=== PATIENT | male | born 1975 | race African-American/Black ===

== ENCOUNTER 2019-01-18 09:29 | Inpatient (IN) | payer MEDICARE, MEDICAID ==
[~2019-01-18] VITALS: Ht 190.5 cm; Wt 97.5 kg
[2019-01-18 10:09] LABS: BASOPHILS % 0.8 % (0.0-2.0); EOSINOPHILS % 1.9 % (0.0-5.0); HEMATOCRIT. 30.3 % (42.0-52.0); HEMOGLOBIN. 10.1 g/dL (14.0-18.0); MEAN CORPUSCULAR VOLUME 78.2 fL (80.0-94.0); MONOCYTES % 5.2 % (2.0-8.0); NEUTROPHILS % 76.1 % (40.0-76.0); PLATELET 95 x1000/uL (130-400); RED BLOOD CELL COUNT 3.87 mill/uL (4.7-6.1); RED CELL DISTRIBUTION WIDTH 25.2 % (11.6-14.6)
[2019-01-18 10:16] LABS: CHLORIDE 106 mEq/L (98-107)
[2019-01-18 10:33] LABS: PLATELET ESTIMATE DECREASED
[2019-01-18] MEDS ORDERED: HYDRALAZINE 20MG/ML VIAL IV ONE ×2 (12:15→13:45)
[2019-01-18 16:31] VITALS: BP 189/99
[2019-01-18 16:40] VITALS: BP 198/99
[2019-01-18] MEDS ORDERED: ONDANSETRON HCL 4MG/2ML INJ IV PRN (17:00)
[2019-01-18] MEDS ORDERED: ACETAMINOPHEN 325MG TABLET PO PRN (17:00)
[2019-01-18] MEDS ORDERED: IPRATROPIUM/ALBUTEROL 0.5-3(2.5)MG/3ML NEB NEB PRN (17:00)
[2019-01-18] MEDS ORDERED: GUAIFENESIN 200MG/10ML SUGAR FREE UDC PO PRN (17:00)
[2019-01-18] MEDS ORDERED: DIPHENHYDRAMINE 50MG/ML VIAL IV PRN (17:00)
[2019-01-18] MEDS ORDERED: MAGNESIUM/ALUMINUM HYDROXIDE/SIMETHICONE 30ML UDC PO PRN (17:00)
[2019-01-18] MEDS ORDERED: HYDRALAZINE 20MG/ML VIAL IV PRN (17:00)
[2019-01-18] MEDS: CLONIDINE 0.1MG TABLET PO PRN (17:41)
[2019-01-18] MEDS ORDERED: LOSA50TA41 PO (17:56)
[2019-01-18] MEDS ORDERED: CLON-457 PO (17:56)
[2019-01-18] MEDS ORDERED: ASPI-1393 PO (17:56)
[2019-01-18] MEDS ORDERED: TICA90TA PO (17:56)
[2019-01-18] MEDS ORDERED: CARV12.545 PO (17:56)
[2019-01-18] MEDS ORDERED: OMEP40CA34 PO (17:56)
[2019-01-18] MEDS ORDERED: LEVO25TA7 PO (17:56)
[2019-01-18] MEDS ORDERED: ATOR-2 PO (17:56)
[2019-01-18] MEDS ORDERED: AMLO10TA80 PO (17:56)
[2019-01-18 18:30] VITALS: BP 160/95
[2019-01-18 20:00] VITALS: BP 180/102
[2019-01-18] MEDS: OMEPRAZOLE 20MG CAPSULE EXTENDED RELEASE PO SCH (20:17)
[2019-01-18] MEDS: CARVEDILOL 12.5MG TABLET PO SCH (20:18)
[2019-01-18] MEDS: ATORVASTATIN CALCIUM 40MG TABLET PO SCH (20:18)
[2019-01-18] MEDS: SODIUM CHLORIDE 0.9% INJ 3ML FLUSH IVF SCH (21:31)
[2019-01-18] MEDS: HYDRALAZINE HCL 50MG TABLET PO SCH (21:31)
[2019-01-18] MEDS: CLONIDINE 0.2MG TABLET PO SCH (21:31)
[2019-01-18 23:59] VITALS: BP 171/93
[2019-01-19] VITALS (8 sets, daily range): BP systolic 143–192; BP diastolic 82–104
[2019-01-19] MEDS: CLONIDINE 0.1MG TABLET PO PRN (02:49)
[2019-01-19] MEDS: HYDRALAZINE HCL 50MG TABLET PO SCH (05:22)
[2019-01-19] MEDS: SODIUM CHLORIDE 0.9% INJ 3ML FLUSH IVF SCH ×3 (05:22→21:45)
[2019-01-19] MEDS: CLONIDINE 0.2MG TABLET PO SCH (05:22)
[2019-01-19 06:51] LABS: EOSINOPHILS % 2.1 % (0.0-5.0); HEMATOCRIT. 33.6 % (42.0-52.0); HEMOGLOBIN. 10.9 g/dL (14.0-18.0); LYMPHOCYTES % 17.3 % (20.0-50.0); MEAN CORPUSCULAR HEMOGLOBIN 25.6 pg (28.0-32.0); MEAN CORPUSCULAR VOLUME 79.2 fL (80.0-94.0); MEAN PLATELET VOLUME 8.2 fl (7.4-10.4); MONOCYTES % 5.2 % (2.0-8.0); NEUTROPHILS % 74.4 % (40.0-76.0); PLATELET 98 x1000/uL (130-400); RED BLOOD CELL COUNT 4.25 mill/uL (4.7-6.1); RED CELL DISTRIBUTION WIDTH 24.9 % (11.6-14.6)
[2019-01-19] MEDS: OMEPRAZOLE 20MG CAPSULE EXTENDED RELEASE PO SCH ×2 (08:54→21:00)
[2019-01-19] MEDS: ASPIRIN 81MG EC TABLET PO SCH (08:54)
[2019-01-19] MEDS: LEVOTHYROXINE SODIUM 25MCG TABLET PO SCH (08:55)
[2019-01-19] MEDS: TICAGRELOR 90 MG TABLET PO SCH ×2 (08:55→17:47)
[2019-01-19] MEDS: CARVEDILOL 12.5MG TABLET PO SCH ×2 (08:55→21:00)
[2019-01-19] MEDS ORDERED: AMLODIPINE 10MG TABLET PO SCH (09:00)
[2019-01-19] MEDS ORDERED: LOSARTAN POTASSIUM 50 MG TABLET PO SCH (09:00)
[2019-01-19] MEDS ORDERED: HYDRALAZINE HCL 50MG TABLET PO SCH (14:00)
[2019-01-19] MEDS: NIFEDIPINE XL 90MG TAB PO SCH ×3 (16:02→21:46)
[2019-01-19] MEDS: CLONIDINE 0.3MG TABLET PO SCH ×2 (16:03→21:46)
[2019-01-19] MEDS: HYDRALAZINE HCL 100MG TABLET PO SCH ×2 (16:03→21:46)
[2019-01-19] MEDS: ATORVASTATIN CALCIUM 40MG TABLET PO SCH (21:00)
[2019-01-19] MEDS ORDERED: CLONIDINE 0.2MG TABLET PO PRN (21:24)
[2019-01-20] VITALS: BP 123/79
[2019-01-20 04:00] VITALS: BP 121/73
[2019-01-20] MEDS: SODIUM CHLORIDE 0.9% INJ 3ML FLUSH IVF SCH ×2 (05:34→13:02)
[2019-01-20] MEDS: CLONIDINE 0.3MG TABLET PO SCH ×2 (05:34→13:02)
[2019-01-20] MEDS: HYDRALAZINE HCL 100MG TABLET PO SCH ×2 (05:35→13:02)
[2019-01-20 08:00] VITALS: BP 129/77
[2019-01-20] MEDS: NIFEDIPINE XL 90MG TAB PO SCH (08:58)
[2019-01-20] MEDS: ASPIRIN 81MG EC TABLET PO SCH (08:58)
[2019-01-20] MEDS: TICAGRELOR 90 MG TABLET PO SCH (08:58)
[2019-01-20] MEDS: LEVOTHYROXINE SODIUM 25MCG TABLET PO SCH (08:59)
[2019-01-20] MEDS: OMEPRAZOLE 20MG CAPSULE EXTENDED RELEASE PO SCH (08:59)
[2019-01-20] MEDS: CARVEDILOL 12.5MG TABLET PO SCH (08:59)
[2019-01-20 12:25] VITALS: BP 135/71
[2019-01-20 15:54] VITALS: BP 140/87
[2019-01-20 16:30] VITALS: BP 140/87
== END 2019-01-20 17:43 | disposition home or self-care (01) | DRG 291 ==
LOC: ER 09:29 → 7WST 12:36 → ENRESERV 12:55
PROVIDERS: ADMIT Internal Medicine; ATTEND Internal Medicine
PROC: 5A1D70Z Performance of Urinary Filtration, Intermittent, Less than 6 Hours Per Day (ICD-10-PCS; principal; 2019-01-19)
PROC: 5A1D70Z Performance of Urinary Filtration, Intermittent, Less than 6 Hours Per Day (ICD-10-PCS; 2019-01-20)
DX: I13.2 Hypertensive heart and chronic kidney disease with heart failure and with stage 5 chronic kidney disease, or end stage renal disease (principal); N18.6 End stage renal disease; I31.3 Pericardial effusion (noninflammatory); I25.118 Atherosclerotic heart disease of native coronary artery with other forms of angina pectoris; I16.0 Hypertensive urgency; K21.9 Gastro-esophageal reflux disease without esophagitis; T44.7X5A Adverse effect of beta-adrenoreceptor antagonists, initial encounter; R00.1 Bradycardia, unspecified; E78.00 Pure hypercholesterolemia, unspecified; I50.9 Heart failure, unspecified; I25.2 Old myocardial infarction; Y92.89 Other specified places as the place of occurrence of the external cause; Z79.899 Other long term (current) drug therapy; Z82.49 Family history of ischemic heart disease and other diseases of the circulatory system; Z83.3 Family history of diabetes mellitus; Z95.5 Presence of coronary angioplasty implant and graft; Z99.2 Dependence on renal dialysis; Z79.82 Long term (current) use of aspirin; Z88.0 Allergy status to penicillin; Z88.8 Allergy status to other drugs, medicaments and biological substances; Z91.041 Radiographic dye allergy status
CPT/HCPCS: 36415; 71045; 80048; 83880; 84484; 93005; 93306; 99291; J0360; J8499

== ENCOUNTER 2019-07-20 16:42 | Inpatient (IN) | payer MEDICARE, MEDICAID ==
[~2019-07-20] VITALS: Ht 190.5 cm; Wt 89.8 kg
[~2019-07-20 16:42] MED LIST: AMLO10TA80 PO; ASPI-1497 PO; ATOR-2 PO; CARV12.545 PO; CLON-457 PO; LEVO25TA7 PO; LOSA50TA41 PO; OMEP40CA12 PO; TICA90TA PO
[2019-07-20] MEDS ORDERED: ONDANSETRON HCL 4MG/2ML INJ IV ONE ×3 (17:00→23:15)
[2019-07-20] MEDS ORDERED: MORPHINE SULFATE 2 MG/ML CPJ (NOT FOR IM USE) IV ONE (17:00)
[2019-07-20 18:57] LABS: CHLORIDE 107 mEq/L (98-107)
[2019-07-20 19:01] LABS: HEMATOCRIT. 32.7 % (42.0-52.0); HEMOGLOBIN. 11.1 g/dL (14.0-18.0); MEAN CORPUSCULAR HEMOGLOBIN 28.8 pg (28.0-32.0); MEAN CORPUSCULAR VOLUME 84.9 fL (80.0-94.0); MEAN PLATELET VOLUME 7.2 fl (7.4-10.4); PLATELET 136 x1000/uL (130-400); RED BLOOD CELL COUNT 3.85 mill/uL (4.7-6.1); RED CELL DISTRIBUTION WIDTH 18.7 % (11.6-14.6)
[2019-07-20 19:34] LABS: PLATELET ESTIMATE NORMAL
[2019-07-20] MEDS ORDERED: IOHEXOL-300 100 ML BOTTLE ONE (21:01)
[2019-07-20] MEDS ORDERED: KETOROLAC 30MG/ML VIAL IV ONE (21:30)
[2019-07-20] MEDS ORDERED: METOCLOPRAMIDE HCL 10MG/2ML VIAL IV ONE (21:45)
[2019-07-20] MEDS ORDERED: MORPHINE SULFATE 4 MG/ML CPJ (NOT FOR IM USE) IV ONE (23:15)
[2019-07-21] MEDS: MORPHINE SULFATE 2 MG/ML CPJ (NOT FOR IM USE) IV PRN ×3 (07:57→20:58)
[2019-07-21] MEDS: ONDANSETRON HCL 4MG/2ML INJ IV PRN (07:57)
[2019-07-21 08:00] VITALS: BP 160/90
[2019-07-21 12:00] VITALS: BP 177/84
[2019-07-21] MEDS: PANTOPRAZOLE SODIUM 40 MG/VIAL IV SCH (13:25)
[2019-07-21] MEDS: LEVOTHYROXINE SODIUM 25MCG TABLET PO SCH (13:25)
[2019-07-21] MEDS: DEXT 5%/0.45% NACL 1000ML 1,000 ML IV SCH ×2 (13:25→23:02)
[2019-07-21] MEDS: LOSARTAN POTASSIUM 50 MG TABLET PO SCH (13:26)
[2019-07-21 16:00] VITALS: BP 170/87
[2019-07-21] MEDS: TICAGRELOR 90 MG TABLET PO SCH (17:24)
[2019-07-21 20:00] VITALS: BP 156/91
[2019-07-22] VITALS: BP 153/85
[2019-07-22] MEDS: ONDANSETRON HCL 4MG/2ML INJ IV PRN (02:13)
[2019-07-22] MEDS: MORPHINE SULFATE 2 MG/ML CPJ (NOT FOR IM USE) IV PRN ×3 (02:16→14:01)
[2019-07-22 04:00] VITALS: BP 153/84
[2019-07-22 07:36] LABS: CHLORIDE 102 mEq/L (98-107)
[2019-07-22 07:41] LABS: BASOPHILS % 0.4 % (0.0-2.0); EOSINOPHILS % 0.2 % (0.0-5.0); HEMATOCRIT. 32.4 % (42.0-52.0); HEMOGLOBIN. 10.8 g/dL (14.0-18.0); LYMPHOCYTES % 8.1 % (20.0-50.0); MEAN CORPUSCULAR HEMOGLOBIN 28.3 pg (28.0-32.0); MEAN CORPUSCULAR VOLUME 84.9 fL (80.0-94.0); MEAN PLATELET VOLUME 7.3 fl (7.4-10.4); MONOCYTES % 8.2 % (2.0-8.0); NEUTROPHILS % 83.1 % (40.0-76.0); PLATELET 139 x1000/uL (130-400); RED BLOOD CELL COUNT 3.82 mill/uL (4.7-6.1); RED CELL DISTRIBUTION WIDTH 18.8 % (11.6-14.6)
[2019-07-22 08:00] VITALS: BP 124/79
[2019-07-22] MEDS: PANTOPRAZOLE SODIUM 40 MG/VIAL IV SCH (08:29)
[2019-07-22] MEDS: TICAGRELOR 90 MG TABLET PO SCH (08:30)
[2019-07-22] MEDS: LOSARTAN POTASSIUM 50 MG TABLET PO SCH (08:30)
[2019-07-22] MEDS: LEVOTHYROXINE SODIUM 25MCG TABLET PO SCH (08:30)
[2019-07-22] MEDS ORDERED: AMLODIPINE 10MG TABLET PO SCH (09:00)
[2019-07-22] MEDS ORDERED: ASPIRIN 81MG EC TABLET PO SCH (09:00)
[2019-07-22] MEDS ORDERED: DOCU-138 MT (09:50)
[2019-07-22] MEDS ORDERED: HYDR-3281 MT ×2 (09:50→09:53)
[2019-07-22] MEDS ORDERED: DOCUSATE SODIUM 100MG CAPSULE PO SCH (10:00)
[2019-07-22] MEDS ORDERED: LACTULOSE 20G/30ML UDC PO SCH (10:00)
[2019-07-22 10:12] VITALS: BP 124/79
[2019-07-22 12:00] VITALS: BP 144/86
[2019-07-22 14:01] VITALS: BP 144/86
[2019-07-23] MEDS ORDERED: FAMOTIDINE 20MG/2ML VIAL IV SCH (09:00)
== END 2019-07-22 11:45 | disposition home or self-care (01) | DRG 686 ==
LOC: ER 16:42 → 6WST 07-21 00:14 → ENRESERV 07-21 07:46
PROVIDERS: ADMIT Hospitalist; ATTEND Hospitalist
PROC: 5A1D70Z Performance of Urinary Filtration, Intermittent, Less than 6 Hours Per Day (ICD-10-PCS; principal; 2019-07-21)
DX: C64.9 Malignant neoplasm of unspecified kidney, except renal pelvis (principal); N18.6 End stage renal disease; C78.6 Secondary malignant neoplasm of retroperitoneum and peritoneum; I12.0 Hypertensive chronic kidney disease with stage 5 chronic kidney disease or end stage renal disease; E78.5 Hyperlipidemia, unspecified; E03.9 Hypothyroidism, unspecified; I25.10 Atherosclerotic heart disease of native coronary artery without angina pectoris; R59.9 Enlarged lymph nodes, unspecified; Z88.5 Allergy status to narcotic agent; Z88.0 Allergy status to penicillin; Z91.041 Radiographic dye allergy status; Z79.82 Long term (current) use of aspirin; Z79.890 Hormone replacement therapy; Z79.899 Other long term (current) drug therapy; I25.2 Old myocardial infarction; Z99.2 Dependence on renal dialysis; Z95.5 Presence of coronary angioplasty implant and graft
CPT/HCPCS: 36415; 74177; 80053; 84443; 85025; 93970; 99285; C9113; J1885; J2270; J2405; J2765; Q9967; J8499

== ENCOUNTER 2019-10-11 05:21 | Inpatient (IN) | payer MEDICARE, MEDICAID ==
[2019-10-11] VITALS (9 sets, daily range): BP systolic 118–163; BP diastolic 67–93
[~2019-10-11] VITALS: Ht 190.5 cm; Wt 93.0 kg
[~2019-10-11 05:21] MED LIST changes: +HYDR-3281 MT
[2019-10-11 06:28] LABS: BASOPHILS % 1.1 % (0.0-2.0); EOSINOPHILS % 2.2 % (0.0-5.0); LYMPHOCYTES % 16.9 % (20.0-50.0); MEAN CORPUSCULAR HEMOGLOBIN 29.8 pg (28.0-32.0); MEAN CORPUSCULAR VOLUME 89.8 fL (80.0-94.0); MEAN PLATELET VOLUME 7.8 fl (7.4-10.4); MONOCYTES % 7.1 % (2.0-8.0); NEUTROPHILS % 72.7 % (40.0-76.0); PLATELET 153 x1000/uL (130-400); RED CELL DISTRIBUTION WIDTH 19.7 % (11.6-14.6)
[2019-10-11 06:36] LABS: CHLORIDE 106 mEq/L (98-107); HEMOGLOBIN. 6.9 g/dL (14.0-18.0)
[2019-10-11 06:37] LABS: HEMATOCRIT. 20.7 % (42.0-52.0)
[2019-10-11] MEDS ORDERED: NIFE20CA PO (11:55)
[2019-10-11] MEDS ORDERED: CLON0.2T PO (11:55)
[2019-10-11] MEDS ORDERED: CINA30 MT (11:55)
[2019-10-11] MEDS ORDERED: FERR210T PO (11:55)
[2019-10-11] MEDS ORDERED: HYDR-4135 MT (11:59)
[2019-10-11] MEDS ORDERED: CLONIDINE 0.2MG TABLET PO SCH (13:00)
[2019-10-11] MEDS: CINACALCET HCL 30MG TABLET PO SCH ×2 (13:33→16:51)
[2019-10-11] MEDS: CLONIDINE 0.2MG TABLET PO SCH ×2 (14:00→21:05)
[2019-10-11] MEDS: TICAGRELOR 90 MG TABLET PO SCH (16:51)
[2019-10-11] MEDS: CARVEDILOL 12.5MG TABLET PO SCH (21:03)
[2019-10-11] MEDS: NIFEDIPINE XL 90MG TAB PO SCH (21:05)
[2019-10-12 00:13] VITALS: BP 127/91
[2019-10-12 00:20] VITALS: BP 110/74
[2019-10-12 04:24] VITALS: BP 131/82
[2019-10-12] MEDS: CLONIDINE 0.2MG TABLET PO SCH (06:32)
[2019-10-12 06:55] LABS: INR 1.1; PROTHROMBIN TIME 11.3 sec (9.6-11.0)
[2019-10-12 07:01] LABS: EOSINOPHILS % 2.7 % (0.0-5.0); HEMATOCRIT. 25.7 % (42.0-52.0); HEMOGLOBIN. 8.5 g/dL (14.0-18.0); LYMPHOCYTES % 17.2 % (20.0-50.0); MEAN CORPUSCULAR HEMOGLOBIN 29.7 pg (28.0-32.0); MEAN PLATELET VOLUME 7.4 fl (7.4-10.4); MONOCYTES % 7.1 % (2.0-8.0); PLATELET 137 x1000/uL (130-400); RED BLOOD CELL COUNT 2.86 mill/uL (4.7-6.1); RED CELL DISTRIBUTION WIDTH 18.3 % (11.6-14.6)
[2019-10-12 07:03] LABS: CHLORIDE 111 mEq/L (98-107)
[2019-10-12] MEDS ORDERED: PANTOPRAZOLE 40MG DR TABLET PO SCH (07:20)
[2019-10-12] MEDS ORDERED: LEVOTHYROXINE SODIUM 25MCG TABLET PO SCH (07:20)
[2019-10-12 08:03] VITALS: BP 133/87
[2019-10-12] MEDS: CINACALCET HCL 30MG TABLET PO SCH (08:29)
[2019-10-12] MEDS: NIFEDIPINE XL 90MG TAB PO SCH (08:29)
[2019-10-12] MEDS: TICAGRELOR 90 MG TABLET PO SCH (08:29)
[2019-10-12] MEDS: CARVEDILOL 12.5MG TABLET PO SCH (08:30)
[2019-10-12] MEDS ORDERED: AMLODIPINE 10MG TABLET PO SCH (09:00)
[2019-10-12] MEDS ORDERED: LOSARTAN POTASSIUM 50 MG TABLET PO SCH (09:00)
[2019-10-12] MEDS ORDERED: MEDICATION NOT ON FORMULARY EA (Omeprazole 40 MG) PO SCH (09:00)
[2019-10-12] MEDS ORDERED: MEDICATION NOT ON FORMULARY EA (Clonidine HCl (Clonidine HCl ER) 0.1 MG) PO SCH (09:00)
[2019-10-12] MEDS ORDERED: ASPIRIN 81MG TABLET PO SCH (09:00)
[2019-10-12] MEDS ORDERED: ATORVASTATIN CALCIUM 40MG TABLET PO SCH (09:00)
[2019-10-12 11:11] VITALS: BP 133/87
[2019-10-12 12:03] VITALS: BP 92/68
== END 2019-10-12 12:54 | disposition home or self-care (01) | DRG 699 ==
LOC: ER 05:21 → 6WST 08:08 → ENRESERV 08:44
PROVIDERS: ADMIT Hospitalist; ATTEND Hospitalist
PROC: 30233N1 Transfusion of Nonautologous Red Blood Cells into Peripheral Vein, Percutaneous Approach (ICD-10-PCS; principal; 2019-10-11)
PROC: 5A1D70Z Performance of Urinary Filtration, Intermittent, Less than 6 Hours Per Day (ICD-10-PCS; 2019-10-11)
DX: N28.1 Cyst of kidney, acquired (principal); I12.0 Hypertensive chronic kidney disease with stage 5 chronic kidney disease or end stage renal disease; N18.6 End stage renal disease; D63.1 Anemia in chronic kidney disease; E03.9 Hypothyroidism, unspecified; I25.10 Atherosclerotic heart disease of native coronary artery without angina pectoris; K57.90 Diverticulosis of intestine, part unspecified, without perforation or abscess without bleeding; R31.9 Hematuria, unspecified; Z88.5 Allergy status to narcotic agent; Z99.2 Dependence on renal dialysis; Z88.0 Allergy status to penicillin; Z82.49 Family history of ischemic heart disease and other diseases of the circulatory system; Z91.041 Radiographic dye allergy status; Z79.1 Long term (current) use of non-steroidal anti-inflammatories (NSAID); Z79.899 Other long term (current) drug therapy; Z79.82 Long term (current) use of aspirin
CPT/HCPCS: 36415; 71045; 74176; 80053; 84484; 85025; 85384; 86850; 86900; 86920; 93005; 99291; P9016; J8499

== ENCOUNTER 2020-07-26 11:55 | Emergency (ER) | payer MEDICARE, MEDICAID ==
[~2020-07-26] VITALS: Ht 190.5 cm; Wt 98.0 kg
[~2020-07-26 11:55] MED LIST changes: +CINA30 MT; -CLON-457 PO; +CLON0.2T PO; -HYDR-3281 MT; +HYDR-4135 MT; +HYDR-4346 MT; +NIFE20CA PO
[2020-07-26 13:18] LABS: CHLORIDE 100 mEq/L (98-107)
[2020-07-26 13:26] LABS: EOSINOPHILS % 6.1 % (0.0-5.0); LYMPHOCYTES % 9.2 % (20.0-50.0); MEAN CORPUSCULAR HEMOGLOBIN 29.4 pg (28.0-32.0); MEAN CORPUSCULAR VOLUME 89.8 fL (80.0-94.0); MEAN PLATELET VOLUME 7.1 fl (7.4-10.4); MONOCYTES % 6.3 % (2.0-8.0); NEUTROPHILS % 77.4 % (40.0-76.0); PLATELET 186 x1000/uL (130-400); RED BLOOD CELL COUNT 2.13 mill/uL (4.7-6.1); RED CELL DISTRIBUTION WIDTH 20.9 % (11.6-14.6)
[2020-07-26 13:29] LABS: HEMATOCRIT. 19.1 % (42.0-52.0); HEMOGLOBIN. 6.3 g/dL (14.0-18.0)
[2020-07-26] MEDS ORDERED: HYDROCODONE/ACETAMINOPHEN 5/325MG TABLET PO ONE (14:15)
[2020-07-26 18:07] VITALS: BP 110/65
== END 2020-07-26 18:09 | disposition home or self-care (01) ==
LOC: ER 11:55
DX: D64.9 Anemia, unspecified (principal); R94.31 Abnormal electrocardiogram [ECG] [EKG]; N18.6 End stage renal disease; I25.10 Atherosclerotic heart disease of native coronary artery without angina pectoris; Z99.2 Dependence on renal dialysis; Z79.899 Other long term (current) drug therapy; Z79.82 Long term (current) use of aspirin; Z88.0 Allergy status to penicillin; Z88.5 Allergy status to narcotic agent
CPT/HCPCS: 36415; 71045; 80053; 84484; 85025; 86850; 86900; 86920; 93005; 99285; P9016

== ENCOUNTER 2022-02-02 07:01 | Inpatient (IN) | payer MEDICARE, MEDICAID ==
[~2022-02-02] VITALS: Ht 190.5 cm; Wt 94.8 kg
[~2022-02-02 07:01] MED LIST changes: -OMEP40CA12 PO; +OMEP40CA20 PO
[2022-02-02 09:07] LABS: BASOPHILS % 0.6 % (0.0-2.0); EOSINOPHILS % 8.2 % (0.0-5.0); LYMPHOCYTES % 15.9 % (20.0-50.0); MEAN CORPUSCULAR VOLUME 88.4 fL (80.0-94.0); MEAN PLATELET VOLUME 7.6 fl (7.4-10.4); MONOCYTES % 6.1 % (2.0-8.0); NEUTROPHILS % 69.2 % (40.0-76.0); PLATELET 95 x1000/uL (130-400); RED CELL DISTRIBUTION WIDTH 22.8 % (11.6-14.6)
[2022-02-02 09:13] LABS: CHLORIDE 106 mEq/L (98-107); HEMOGLOBIN. 5.3 g/dL (14.0-18.0)
[2022-02-02 09:15] LABS: HEMATOCRIT. 16.8 % (42.0-52.0)
[2022-02-02 09:38] LABS: PLATELET ESTIMATE DECREASED
[2022-02-02] MEDS ORDERED: ONDANSETRON HCL 4MG/2ML INJ IV PRN (12:00)
[2022-02-02] MEDS ORDERED: ACETAMINOPHEN 325MG TABLET PO PRN (12:00)
[2022-02-02] MEDS ORDERED: GUAIFENESIN 200MG/10ML SUGAR FREE UDC PO PRN (12:00)
[2022-02-02] MEDS ORDERED: MAGNESIUM/ALUMINUM HYDROXIDE/SIMETHICONE 30ML UDC PO PRN (12:00)
[2022-02-02] MEDS ORDERED: TRAMADOL 50MG TABLET PO PRN (12:00)
[2022-02-02] MEDS ORDERED: DOCUSATE SODIUM 100MG CAPSULE PO PRN (12:00)
[2022-02-02] MEDS: LEVOTHYROXINE SODIUM 25MCG TABLET PO SCH (12:21)
[2022-02-02] MEDS: AMLODIPINE 10MG TABLET PO SCH (12:22)
[2022-02-02] MEDS: ASPIRIN 81MG TABLET PO SCH (12:30)
[2022-02-02] MEDS ORDERED: NALOXONE HCL 0.4MG/ML VIAL IV PRN (12:30)
[2022-02-02 14:27] LABS: TOTAL IRON BINDING CAPACITY 204 ug/dL (250-450)
[2022-02-02 14:51] LABS: HEPATITIS B SURFACE ANTIGEN NEGATIVE
[2022-02-02] MEDS: HYDRALAZINE HCL 50MG TABLET PO SCH ×2 (15:52→22:00)
[2022-02-02] MEDS: CLONIDINE 0.2MG TABLET PO SCH ×2 (15:52→22:00)
[2022-02-02] MEDS: CINACALCET HCL 30MG TABLET PO SCH ×2 (15:53→19:37)
[2022-02-02] MEDS: CARVEDILOL 12.5MG TABLET PO SCH (18:37)
[2022-02-02] MEDS: TICAGRELOR 90 MG TABLET PO SCH (18:38)
[2022-02-02 23:40] VITALS: BP 148/68
[2022-02-02] MEDS ORDERED: LENV14CA PO (23:48)
[2022-02-03] VITALS (17 sets, daily range): BP systolic 80–159; BP diastolic 48–85
[2022-02-03] MEDS: CLONIDINE 0.2MG TABLET PO SCH ×2 (06:23→13:29)
[2022-02-03] MEDS: HYDRALAZINE HCL 50MG TABLET PO SCH ×2 (06:23→13:28)
[2022-02-03 06:55] LABS: BASOPHILS % 0.6 % (0.0-2.0); EOSINOPHILS % 7.7 % (0.0-5.0); LYMPHOCYTES % 16.1 % (20.0-50.0); MEAN CORPUSCULAR HEMOGLOBIN 28.9 pg (28.0-32.0); MEAN CORPUSCULAR VOLUME 87.5 fL (80.0-94.0); MEAN PLATELET VOLUME 7.9 fl (7.4-10.4); MONOCYTES % 7.1 % (2.0-8.0); NEUTROPHILS % 68.5 % (40.0-76.0); PLATELET 97 x1000/uL (130-400); RED BLOOD CELL COUNT 2.08 mill/uL (4.7-6.1); RED CELL DISTRIBUTION WIDTH 20.9 % (11.6-14.6)
[2022-02-03 07:00] LABS: HEMATOCRIT. 18.2 % (42.0-52.0)
[2022-02-03] MEDS: CINACALCET HCL 30MG TABLET PO SCH ×3 (07:20→17:59)
[2022-02-03] MEDS: LEVOTHYROXINE SODIUM 25MCG TABLET PO SCH (09:00)
[2022-02-03] MEDS ORDERED: AMLODIPINE 10MG TABLET PO SCH (09:00)
[2022-02-03] MEDS: TICAGRELOR 90 MG TABLET PO SCH ×2 (09:00→17:00)
[2022-02-03] MEDS ORDERED: LOSARTAN POTASSIUM 50 MG TABLET PO SCH (09:00)
[2022-02-03] MEDS: ASPIRIN 81MG TABLET PO SCH (09:20)
[2022-02-03] MEDS: CARVEDILOL 12.5MG TABLET PO SCH (09:20)
[2022-02-03] MEDS: AMLODIPINE 10MG TABLET PO SCH (09:21)
[2022-02-03 09:24] LABS: CHLORIDE 106 mEq/L (98-107)
[2022-02-03 09:33] LABS: HDL CHOLESTEROL 30 mg/dL (40-59); LDL CHOLESTEROL 42 mg/dL (5-100)
[2022-02-03 17:10] LABS: HEMATOCRIT 24.1 % (42.0-52.0); HEMOGLOBIN 7.8 g/dL (14.0-18.0)
== END 2022-02-03 19:35 | disposition home or self-care (01) | DRG 808 ==
LOC: ER 07:01 → EDBEDREQ 10:02 → 3WST 10:46 → EDBEDREQ 10:50 → EDBEDREQTM 10:50 → ENRESERV 21:01
PROVIDERS: ADMIT Hospitalist; ATTEND Hospitalist
PROC: 30233N1 Transfusion of Nonautologous Red Blood Cells into Peripheral Vein, Percutaneous Approach (ICD-10-PCS; principal; 2022-02-02)
PROC: 30233N1 Transfusion of Nonautologous Red Blood Cells into Peripheral Vein, Percutaneous Approach (ICD-10-PCS; 2022-02-02)
PROC: 5A1D70Z Performance of Urinary Filtration, Intermittent, Less than 6 Hours Per Day (ICD-10-PCS; 2022-02-03)
DX: D61.810 Antineoplastic chemotherapy induced pancytopenia (principal); E43 Unspecified severe protein-calorie malnutrition; I50.33 Acute on chronic diastolic (congestive) heart failure; N18.6 End stage renal disease; I13.2 Hypertensive heart and chronic kidney disease with heart failure and with stage 5 chronic kidney disease, or end stage renal disease; C64.9 Malignant neoplasm of unspecified kidney, except renal pelvis; Z20.822 Contact with and (suspected) exposure to COVID-19; D63.1 Anemia in chronic kidney disease; T45.1X5A Adverse effect of antineoplastic and immunosuppressive drugs, initial encounter; I25.10 Atherosclerotic heart disease of native coronary artery without angina pectoris; E78.00 Pure hypercholesterolemia, unspecified; Z99.2 Dependence on renal dialysis; Z98.61 Coronary angioplasty status; Z88.0 Allergy status to penicillin; Z88.8 Allergy status to other drugs, medicaments and biological substances; Z68.26 Body mass index [BMI] 26.0-26.9, adult; Y92.89 Other specified places as the place of occurrence of the external cause
CPT/HCPCS: 36415; 71045; 80053; 80061; 82962; 83540; 83550; 83880; 84484; 85014; 85018; 85025; 85049; 85384; 86705; 86709; 86803; 86850; 86900; 86920; 87340; 87426; 90935; 93005; 99291; P9016; J8499

== ENCOUNTER 2022-02-17 08:21 | Inpatient (IN) | payer MEDICARE, MEDICAID ==
[2022-02-17] VITALS (12 sets, daily range): BP systolic 104–150; BP diastolic 40–98
[~2022-02-17] VITALS: Ht 190.5 cm; Wt 95.3 kg
[~2022-02-17 08:21] MED LIST changes: +LENV14CA PO
[2022-02-17] MEDS ORDERED: NITROGLYCERIN OINT 1GM/INCH UDPKT TD ONE (08:45)
[2022-02-17 10:22] LABS: BASOPHILS % 0.8 % (0.0-2.0); EOSINOPHILS % 1.4 % (0.0-5.0); MEAN CORPUSCULAR HEMOGLOBIN 27.9 pg (28.0-32.0); MEAN CORPUSCULAR VOLUME 88.4 fL (80.0-94.0); MEAN PLATELET VOLUME 8.4 fl (7.4-10.4); MONOCYTES % 3.6 % (2.0-8.0); NEUTROPHILS % 86.2 % (40.0-76.0); PLATELET 96 x1000/uL (130-400); RED BLOOD CELL COUNT 1.95 mill/uL (4.7-6.1); RED CELL DISTRIBUTION WIDTH 19.6 % (11.6-14.6)
[2022-02-17 10:26] LABS: HEMOGLOBIN. 5.4 g/dL (14.0-18.0)
[2022-02-17 10:27] LABS: HEMATOCRIT. 17.2 % (42.0-52.0)
[2022-02-17 10:30] LABS: CHLORIDE 115 mEq/L (98-107)
[2022-02-17] MEDS ORDERED: ALBUTEROL (0.083%) 2.5MG/3ML NEB HHN ONE (11:15)
[2022-02-17] MEDS ORDERED: INSULIN REGULAR (HUMULIN R) 300UNITS/3ML VIAL IV ONE (11:15)
[2022-02-17] MEDS ORDERED: SODIUM POLYSTYRENE SULFONATE 15 G/60 ML BOT PO ONE (11:15)
[2022-02-17] MEDS ORDERED: SODIUM BICARBONATE 8.4% 1 MEQ/ML 50ML SYR IV ONE (11:15)
[2022-02-17] MEDS ORDERED: DEXTROSE 50% WATER 50ML SYRINGE IV ONE (11:15)
[2022-02-17] MEDS ORDERED: INSULIN REGULAR (HUMULIN R) 300UNITS/3ML VIAL IV NR (13:00)
[2022-02-17] MEDS ORDERED: SODIUM BICARBONATE 8.4% 1 MEQ/ML 50ML SYR IV NR (13:00)
[2022-02-17] MEDS ORDERED: SODIUM POLYSTYRENE SULFONATE 15 G/60 ML BOT PO NR (13:00)
[2022-02-17] MEDS ORDERED: DEXTROSE 50% WATER 50ML SYRINGE IV NR (13:00)
[2022-02-17] MEDS ORDERED: MAGNESIUM/ALUMINUM HYDROXIDE/SIMETHICONE 30ML UDC PO PRN (13:45)
[2022-02-17] MEDS ORDERED: ONDANSETRON HCL 4MG/2ML INJ IV PRN (13:45)
[2022-02-17] MEDS ORDERED: TRAMADOL 50MG TABLET PO PRN (13:45)
[2022-02-17] MEDS ORDERED: DOCUSATE SODIUM 100MG CAPSULE PO PRN (13:45)
[2022-02-17] MEDS ORDERED: ACETAMINOPHEN 325MG TABLET PO PRN (13:45)
[2022-02-17] MEDS: AMLODIPINE 10MG TABLET PO SCH (14:00)
[2022-02-17] MEDS ORDERED: NALOXONE HCL 0.4MG/ML VIAL IV PRN (14:00)
[2022-02-17 16:13] LABS: HEPATITIS B SURFACE ANTIGEN NEGATIVE
[2022-02-17] MEDS: GUAIFENESIN 200MG/10ML SUGAR FREE UDC PO PRN (16:14)
[2022-02-18] VITALS (13 sets, daily range): BP systolic 99–147; BP diastolic 20–98
[2022-02-18] MEDS: GUAIFENESIN 200MG/10ML SUGAR FREE UDC PO PRN (04:16)
[2022-02-18] MEDS: AMLODIPINE 10MG TABLET PO SCH (09:00)
[2022-02-18 21:51] LABS: BASOPHILS % 1.2 % (0.0-2.0); EOSINOPHILS % 3.9 % (0.0-5.0); HEMOGLOBIN. 7.6 g/dL (14.0-18.0); LYMPHOCYTES % 11.1 % (20.0-50.0); MEAN CORPUSCULAR HEMOGLOBIN 29.4 pg (28.0-32.0); MEAN CORPUSCULAR VOLUME 89.1 fL (80.0-94.0); MONOCYTES % 6.7 % (2.0-8.0); NEUTROPHILS % 77.1 % (40.0-76.0); PLATELET 124 x1000/uL (130-400); RED BLOOD CELL COUNT 2.59 mill/uL (4.7-6.1); RED CELL DISTRIBUTION WIDTH 17.3 % (11.6-14.6)
[2022-02-18 21:59] LABS: PROTHROMBIN TIME 10.9 sec (9.6-11.0)
[2022-02-18 22:07] LABS: CHLORIDE 110 mEq/L (98-107)
[2022-02-18 22:16] LABS: HDL CHOLESTEROL 36 mg/dL (40-59); LDL CHOLESTEROL 63 mg/dL (5-100)
[2022-02-19] VITALS (9 sets, daily range): BP systolic 107–185; BP diastolic 39–95
[2022-02-19 05:07] LABS: EOSINOPHILS % 5.2 % (0.0-5.0); LYMPHOCYTES % 12.6 % (20.0-50.0); MEAN CORPUSCULAR HEMOGLOBIN 29.1 pg (28.0-32.0); MEAN CORPUSCULAR VOLUME 88.4 fL (80.0-94.0); MONOCYTES % 6.5 % (2.0-8.0); NEUTROPHILS % 74.7 % (40.0-76.0); PLATELET 103 x1000/uL (130-400); RED CELL DISTRIBUTION WIDTH 17.6 % (11.6-14.6)
[2022-02-19 05:16] LABS: HEMATOCRIT. 19.4 % (42.0-52.0); HEMOGLOBIN. 6.4 g/dL (14.0-18.0)
[2022-02-19 11:59] LABS: HEMATOCRIT 21.5 % (42.0-52.0); HEMOGLOBIN 7.2 g/dL (14.0-18.0)
[2022-02-19] MEDS: AMLODIPINE 10MG TABLET PO SCH (17:03)
[2022-02-19] MEDS: GUAIFENESIN 200MG/10ML SUGAR FREE UDC PO PRN (20:56)
[2022-02-20] VITALS: BP 108/39
[2022-02-20 04:00] VITALS: BP 141/69
[2022-02-20] MEDS: GUAIFENESIN 200MG/10ML SUGAR FREE UDC PO PRN ×2 (05:01→09:24)
[2022-02-20 08:00] VITALS: BP 155/83
[2022-02-20] MEDS: AMLODIPINE 10MG TABLET PO SCH (08:52)
[2022-02-20 10:08] VITALS: BP 155/83
== END 2022-02-20 11:15 | disposition home or self-care (01) | DRG 291 ==
LOC: ER 08:21 → EDBEDREQ 10:20 → EDBEDREQTM 10:20 → 7EST 11:09 → EDBEDREQTM 11:18 → EDBEDREQ 11:18 → ENRESERV 13:33
PROVIDERS: ADMIT Hospitalist; ATTEND Hospitalist
PROC: 30233N1 Transfusion of Nonautologous Red Blood Cells into Peripheral Vein, Percutaneous Approach (ICD-10-PCS; principal; 2022-02-17)
PROC: 5A1D70Z Performance of Urinary Filtration, Intermittent, Less than 6 Hours Per Day (ICD-10-PCS; 2022-02-17)
PROC: 5A1D70Z Performance of Urinary Filtration, Intermittent, Less than 6 Hours Per Day (ICD-10-PCS; 2022-02-19)
DX: I13.2 Hypertensive heart and chronic kidney disease with heart failure and with stage 5 chronic kidney disease, or end stage renal disease (principal); E43 Unspecified severe protein-calorie malnutrition; I50.33 Acute on chronic diastolic (congestive) heart failure; N18.6 End stage renal disease; I16.0 Hypertensive urgency; Z20.822 Contact with and (suspected) exposure to COVID-19; E87.5 Hyperkalemia; E78.00 Pure hypercholesterolemia, unspecified; Z88.0 Allergy status to penicillin; Z88.8 Allergy status to other drugs, medicaments and biological substances; Z79.899 Other long term (current) drug therapy; Z99.2 Dependence on renal dialysis; Z68.26 Body mass index [BMI] 26.0-26.9, adult; Z91.15 Patient's noncompliance with renal dialysis; Z85.528 Personal history of other malignant neoplasm of kidney; D64.81 Anemia due to antineoplastic chemotherapy
CPT/HCPCS: 36415; 71045; 80048; 80053; 80061; 82962; 84484; 85014; 85018; 85025; 86705; 86709; 86803; 86850; 86900; 86920; 87340; 87426; 87804; 90935; 93005; 99291; C9803; J1815; J3490; P9016

== ENCOUNTER 2022-11-16 09:45 | Inpatient (IN) | payer MEDICARE, MEDICAID ==
[~2022-11-16] VITALS: Ht 172.7 cm; Wt 90.8 kg
[2022-11-16] MEDS ORDERED: VANCOMYCIN 1G PREMIX 200 ML IV ONE (12:30)
[2022-11-16] MEDS ORDERED: PIPERACILLIN/TAZ 3.375G PREMIX 50 ML IV ONE (12:30)
[2022-11-16 12:55] LABS: BASOPHILS % 0.7 % (0.0-2.0); EOSINOPHILS % 4.1 % (0.0-5.0); HEMATOCRIT. 24.3 % (42.0-52.0); HEMOGLOBIN. 7.8 g/dL (14.0-18.0); LYMPHOCYTES % 7.5 % (20.0-50.0); MEAN CORPUSCULAR HEMOGLOBIN 26.3 pg (28.0-32.0); MEAN CORPUSCULAR HGB CONC 31.9 g/dL (31.0-37.0); MEAN CORPUSCULAR VOLUME 82.5 fL (80.0-94.0); MEAN PLATELET VOLUME 6.8 fl (7.4-10.4); MONOCYTES % 8.7 % (2.0-8.0); PLATELET 171 x1000/uL (130-400); RED BLOOD CELL COUNT 2.95 mill/uL (4.7-6.1); RED CELL DISTRIBUTION WIDTH 23.8 % (11.6-14.6)
[2022-11-16 13:05] LABS: CHLORIDE 97 mEq/L (98-107); INDEX HEMOLYSI 1 (1-3); INDEX ICTERIC 1 (1-4); INDEX LIPEMIC 1 (1-3); POTASSIUM 3.3 mEq/L (3.5-5.1); SODIUM 134 mEq/L (136-145)
[2022-11-16 13:06] LABS: INR 1.1; PARTIAL THROMBOPLASTIN TIME 49.5 sec (23.4-31.0); PROTHROMBIN TIME 11.6 sec (9.6-11.0)
[2022-11-16 13:12] LABS: ALANINE AMINOTRANSFERASE 12 IU/L (13-61); ALBUMIN 2.6 g/dL (3.4-5.0); ASPARTATE AMINOTRANSFERASE 19 IU/L (15-37); BILIRUBIN TOTAL 0.5 mg/dL (0.1-1.0); CALCIUM 9.2 mg/dL (8.5-10.1); CARBON DIOXIDE 33 mEq/L (21-32); CREATININE 3.8 mg/dL (0.6-1.3); GLUCOSE 74 mg/dL (70-105); PROTEIN TOTAL 7.9 g/dL (6.0-8.3); UREA NITROGEN BLOOD 15 mg/dL (7-21)
[2022-11-16] MEDS ORDERED: ONDANSETRON HCL 4MG/2ML INJ IV PRN (13:15)
[2022-11-16] MEDS ORDERED: CLONIDINE 0.1MG TABLET PO PRN (13:15)
[2022-11-16 13:44] LABS: ADD RBC MORPHOLOGY YES; DIFFERENTIAL COMMENT 1
[2022-11-16 13:57] LABS: ANISOCYTOSIS 2+; PLATELET ESTIMATE NORMAL; TARGET CELLS 1+
[2022-11-16] MEDS: CLONIDINE 0.1MG TABLET PO SCH ×2 (14:45→21:15)
[2022-11-16 14:46] LABS: T4 FREE 0.73 ng/dL (0.76-1.46)
[2022-11-16] MEDS: HYDRALAZINE HCL 25MG TABLET PO SCH ×2 (15:08→21:13)
[2022-11-16] MEDS ORDERED: VANCOMYCIN 1G PREMIX 200 ML IV NR (15:30)
[2022-11-16 16:00] VITALS: BP 147/79; PULSE 75; RESP 18; TEMP 97.9
[2022-11-16] MEDS ORDERED: ONDANSETRON HCL 4MG/2ML INJ IV ONE (17:15)
[2022-11-16 18:00] VITALS: BP 147/79; PULSE 75; RESP 18; RESP 20; TEMP 97.9
[2022-11-16] MEDS ORDERED: NALOXONE HCL 0.4MG/ML VIAL IV PRN (19:30)
[2022-11-16 20:00] VITALS: BP 108/61; PULSE 67; RESP 20; TEMP 98.6
[2022-11-16] MEDS: MORPHINE SULFATE 2 MG/ML CPJ (NOT FOR IM USE) IV PRN (20:32)
[2022-11-16] MEDS: CARVEDILOL 12.5MG TABLET PO SCH (21:00)
[2022-11-17] VITALS (10 sets, daily range): BP systolic 100–171; BP diastolic 56–90; PULSE 73–92; RESP 18–20; TEMP 97.2–99.9
[2022-11-17] MEDS: MORPHINE SULFATE 2 MG/ML CPJ (NOT FOR IM USE) IV PRN ×2 (02:07→09:19)
[2022-11-17] MEDS: HYDRALAZINE HCL 25MG TABLET PO SCH ×3 (06:00→20:42)
[2022-11-17] MEDS: ACETAMINOPHEN 325MG TABLET PO PRN (06:03)
[2022-11-17] MEDS ORDERED: LEVOTHYROXINE SODIUM 25MCG TABLET PO SCH (07:10)
[2022-11-17 07:12] LABS: POTASSIUM 3.5 mEq/L (3.5-5.1)
[2022-11-17 07:20] LABS: CALCIUM 8.9 mg/dL (8.5-10.1); CREATININE 4.9 mg/dL (0.6-1.3)
[2022-11-17] MEDS: AMLODIPINE 10MG TABLET PO SCH (09:00)
[2022-11-17] MEDS: CINACALCET HCL 30MG TABLET PO SCH (09:00)
[2022-11-17] MEDS: CARVEDILOL 12.5MG TABLET PO SCH ×2 (09:00→20:38)
[2022-11-17 10:54] LABS: BASOPHILS % 0.8 % (0.0-2.0); EOSINOPHILS % 4.4 % (0.0-5.0); LYMPHOCYTES % 8.6 % (20.0-50.0); MEAN CORPUSCULAR HEMOGLOBIN 26.9 pg (28.0-32.0); MEAN CORPUSCULAR HGB CONC 32.7 g/dL (31.0-37.0); MEAN CORPUSCULAR VOLUME 82.3 fL (80.0-94.0); MEAN PLATELET VOLUME 7.3 fl (7.4-10.4); MONOCYTES % 9.8 % (2.0-8.0); NEUTROPHILS % 76.4 % (40.0-76.0); PLATELET 146 x1000/uL (130-400); RED BLOOD CELL COUNT 2.51 mill/uL (4.7-6.1); RED CELL DISTRIBUTION WIDTH 23.5 % (11.6-14.6); WHITE BLOOD COUNT 5.4 x1000/uL (4.5-11.0)
[2022-11-17 11:30] LABS: DIFFERENTIAL COMMENT 1
[2022-11-17 11:35] LABS: HEMATOCRIT. 20.7 % (42.0-52.0); HEMOGLOBIN. 6.8 g/dL (14.0-18.0)
[2022-11-17] MEDS: HYDROMORPHONE HCL/PF 2MG/ML CPJ IV PRN ×2 (12:26→20:45)
[2022-11-17 17:27] LABS: HEPATITIS B SURFACE ANTIGEN NEGATIVE
[2022-11-17 17:55] LABS: HEPATITIS B CORE AB IGM NEGATIVE; HEPATITIS C VIR.AB 0.28 INDEXVAL (0.00-0.80)
[2022-11-17 17:57] LABS: HEPATITIS A AB IGM NEGATIVE (NEGATIVE)
[2022-11-17 18:16] LABS: HEMATOCRIT 24.8 % (42.0-52.0); HEMOGLOBIN 8.1 g/dL (14.0-18.0)
[2022-11-18] VITALS (8 sets, daily range): BP systolic 100–173; BP diastolic 45–82; PULSE 60–101; RESP 18–20; TEMP 96–98
[2022-11-18] MEDS: HYDROMORPHONE HCL/PF 2MG/ML CPJ IV PRN ×7 (04:02→19:04)
[2022-11-18] MEDS: HYDRALAZINE HCL 25MG TABLET PO SCH ×3 (06:00→16:22)
[2022-11-18] MEDS: LEVOTHYROXINE SODIUM 50MCG TABLET PO SCH (06:32)
[2022-11-18 06:48] LABS: BASOPHILS % 0.8 % (0.0-2.0); EOSINOPHILS % 5.5 % (0.0-5.0); HEMATOCRIT. 24.3 % (42.0-52.0); HEMOGLOBIN. 8.1 g/dL (14.0-18.0); MEAN CORPUSCULAR HEMOGLOBIN 27.7 pg (28.0-32.0); MEAN CORPUSCULAR HGB CONC 33.3 g/dL (31.0-37.0); MEAN CORPUSCULAR VOLUME 83.3 fL (80.0-94.0); MEAN PLATELET VOLUME 7.3 fl (7.4-10.4); MONOCYTES % 9.3 % (2.0-8.0); NEUTROPHILS % 75.4 % (40.0-76.0); PLATELET 159 x1000/uL (130-400); RED BLOOD CELL COUNT 2.92 mill/uL (4.7-6.1); RED CELL DISTRIBUTION WIDTH 22.4 % (11.6-14.6); WHITE BLOOD COUNT 5.3 x1000/uL (4.5-11.0)
[2022-11-18 06:52] LABS: DIFFERENTIAL COMMENT 1
[2022-11-18 07:35] LABS: POTASSIUM 4.2 mEq/L (3.5-5.1)
[2022-11-18 07:46] LABS: CALCIUM 9.5 mg/dL (8.5-10.1)
[2022-11-18] MEDS: AMLODIPINE 10MG TABLET PO SCH ×2 (09:00→16:25)
[2022-11-18] MEDS: CINACALCET HCL 30MG TABLET PO SCH (09:00)
[2022-11-18] MEDS: CARVEDILOL 12.5MG TABLET PO SCH ×2 (09:00→21:05)
[2022-11-18 09:58] LABS: CREATININE 6.3 mg/dL (0.6-1.3)
[2022-11-18] MEDS ORDERED: ONDANSETRON HCL 4MG/2ML INJ ONE (12:29)
[2022-11-18] MEDS ORDERED: PROPOFOL 200MG/20ML VIAL IV ONE (12:29)
[2022-11-18] MEDS ORDERED: LIDOCAINE HCL 1% 20ML VIAL (Pyxis) INJ ONE (12:29)
[2022-11-18] MEDS ORDERED: DEXAMETHASONE 4MG/ML 1ML VIAL ONE (12:29)
[2022-11-18] MEDS ORDERED: FENTANYL CITRATE/PF 50MCG/ML 2ML VIAL ONE (12:29)
[2022-11-18] MEDS ORDERED: CEFAZOLIN SODIUM 1000MG/VIAL ONE (12:29)
[2022-11-18] MEDS ORDERED: METOCLOPRAMIDE HCL 10MG/2ML VIAL ONE (12:29)
[2022-11-18] MEDS ORDERED: CLINDAMYCIN IN 0.9 % SOD CHLOR 50 ML IV NR (13:00)
[2022-11-18] MEDS ORDERED: ETOMIDATE 2MG/ML 10ML VIAL IV ONE (13:34)
[2022-11-18] MEDS ORDERED: FENTANYL CITRATE/PF 50MCG/ML 2ML VIAL IV PRN (15:00)
[2022-11-18] MEDS: LABETALOL 5MG/ML SYR 20 MG/4 ML SYRINGE IV PRN ×2 (17:46→18:03)
[2022-11-19] VITALS: BP 156/98; PULSE 80; RESP 18; TEMP 99.5
[2022-11-19] MEDS: HYDROMORPHONE HCL/PF 2MG/ML CPJ IV PRN ×4 (00:52→18:31)
[2022-11-19 04:00] VITALS: BP 164/65; PULSE 75; RESP 18; TEMP 97.1
[2022-11-19] MEDS: ACETAMINOPHEN 325MG TABLET PO PRN ×3 (04:01→21:25)
[2022-11-19] MEDS: LEVOTHYROXINE SODIUM 50MCG TABLET PO SCH (06:24)
[2022-11-19] MEDS: HYDRALAZINE HCL 25MG TABLET PO SCH ×2 (06:25→14:30)
[2022-11-19 08:00] VITALS: BP 150/75; PULSE 72; RESP 20; TEMP 97.7
[2022-11-19] MEDS: AMLODIPINE 10MG TABLET PO SCH (08:54)
[2022-11-19] MEDS: CINACALCET HCL 30MG TABLET PO SCH (08:54)
[2022-11-19] MEDS: CARVEDILOL 12.5MG TABLET PO SCH ×2 (08:55→21:24)
[2022-11-19 12:00] VITALS: BP_SYST 131; BP_SYST 142; BP_DIAS 60; BP_DIAS 72; PULSE 70; PULSE 76; RESP 20; TEMP 97.9; TEMP 98
[2022-11-19 16:00] VITALS: BP 135/72; PULSE 74; RESP 20; TEMP 98
[2022-11-19] MEDS: SEVELAMER CARBONATE 800 MG TABLET PO SCH (18:22)
[2022-11-19 20:00] VITALS: BP 137/51; PULSE 70; RESP 19; TEMP 97.1
[2022-11-19] MEDS: HYDRALAZINE HCL 50MG TABLET PO SCH (21:24)
[2022-11-20] VITALS (10 sets, daily range): BP systolic 100–167; BP diastolic 49–82; PULSE 59–97; RESP 16–20; TEMP 96.4–98.4
[2022-11-20] MEDS: HYDROMORPHONE HCL/PF 2MG/ML CPJ IV PRN ×5 (00:58→23:41)
[2022-11-20] MEDS: HYDRALAZINE HCL 50MG TABLET PO SCH (06:06)
[2022-11-20] MEDS: LEVOTHYROXINE SODIUM 50MCG TABLET PO SCH (06:10)
[2022-11-20] MEDS: CINACALCET HCL 30MG TABLET PO SCH (08:42)
[2022-11-20] MEDS: SEVELAMER CARBONATE 800 MG TABLET PO SCH ×3 (08:42→18:15)
[2022-11-20] MEDS: CARVEDILOL 12.5MG TABLET PO SCH ×2 (08:42→21:37)
[2022-11-20] MEDS: AMLODIPINE 10MG TABLET PO SCH (08:43)
[2022-11-20] MEDS ORDERED: METOPROLOL SUCCINATE 50MG ER TABLET PO SCH (09:00)
[2022-11-20] MEDS: HYDRALAZINE HCL 100MG TABLET PO SCH ×2 (13:57→21:37)
[2022-11-20] MEDS: ACETAMINOPHEN 325MG TABLET PO PRN ×2 (15:22→21:37)
[2022-11-20] MEDS ORDERED: VANCOMYCIN 750MG PREMIX 150 ML IV NR (21:00)
[2022-11-20] MEDS ORDERED: EPOETIN ALFA 4000UNITS/ML VIAL SUBCUT SCH (21:00)
[2022-11-20 22:23] LABS: PHOSPHORUS 2.9 mg/dL (2.5-4.9)
[2022-11-21 00:20] VITALS: BP 151/80; PULSE 70; RESP 15; TEMP 97.1
[2022-11-21 07:12] VITALS: RESP 15
[2022-11-21] MEDS: LEVOTHYROXINE SODIUM 50MCG TABLET PO SCH (07:12)
[2022-11-21] MEDS: HYDRALAZINE HCL 100MG TABLET PO SCH (07:12)
[2022-11-21] MEDS: HYDROMORPHONE HCL/PF 2MG/ML CPJ IV PRN (07:12)
[2022-11-21 07:22] LABS: EOSINOPHILS % 4.6 % (0.0-5.0); HEMATOCRIT. 24.3 % (42.0-52.0); HEMOGLOBIN. 7.8 g/dL (14.0-18.0); LYMPHOCYTES % 7.7 % (20.0-50.0); MEAN CORPUSCULAR HEMOGLOBIN 27.5 pg (28.0-32.0); MEAN CORPUSCULAR HGB CONC 32.2 g/dL (31.0-37.0); MEAN CORPUSCULAR VOLUME 85.7 fL (80.0-94.0); MONOCYTES % 7.4 % (2.0-8.0); NEUTROPHILS % 79.3 % (40.0-76.0); PLATELET 166 x1000/uL (130-400); RED BLOOD CELL COUNT 2.84 mill/uL (4.7-6.1); RED CELL DISTRIBUTION WIDTH 23.1 % (11.6-14.6); WHITE BLOOD COUNT 6.5 x1000/uL (4.5-11.0)
[2022-11-21 07:29] LABS: CALCIUM 8.6 mg/dL (8.5-10.1)
[2022-11-21 07:34] LABS: DIFFERENTIAL COMMENT 1
[2022-11-21 07:45] LABS: CREATININE 6.6 mg/dL (0.6-1.3)
[2022-11-21] MEDS: SEVELAMER CARBONATE 800 MG TABLET PO SCH (08:59)
[2022-11-21] MEDS: CARVEDILOL 12.5MG TABLET PO SCH (08:59)
[2022-11-21] MEDS: CINACALCET HCL 30MG TABLET PO SCH (08:59)
[2022-11-21] MEDS: AMLODIPINE 10MG TABLET PO SCH (09:00)
[2022-11-21 09:32] VITALS: BP 131/45; PULSE 69; TEMP 97.8; O2SAT 97
== END 2022-11-21 12:41 | DRG 255 ==
LOC: ER 09:45 → 8WST 13:34 → EDBEDREQ 13:39 → EDBEDREQTM 13:39
PROVIDERS: ADMIT Internal Medicine Nephrology; ATTEND Internal Medicine Nephrology
PROC: 30233N1 Transfusion of Nonautologous Red Blood Cells into Peripheral Vein, Percutaneous Approach (ICD-10-PCS; 2022-11-17)
PROC: 5A1D70Z Performance of Urinary Filtration, Intermittent, Less than 6 Hours Per Day (ICD-10-PCS; 2022-11-17)
PROC: 0Y6Q0Z0 Detachment at Left 1st Toe, Complete, Open Approach (ICD-10-PCS; principal; 2022-11-18)
PROC: 5A1D70Z Performance of Urinary Filtration, Intermittent, Less than 6 Hours Per Day (ICD-10-PCS; 2022-11-19)
DX: I96 Gangrene, not elsewhere classified (principal); N18.6 End stage renal disease; L97.528 Non-pressure chronic ulcer of other part of left foot with other specified severity; I12.0 Hypertensive chronic kidney disease with stage 5 chronic kidney disease or end stage renal disease; J90 Pleural effusion, not elsewhere classified; I31.39 Other pericardial effusion (noninflammatory); Z99.2 Dependence on renal dialysis; D64.9 Anemia, unspecified; I25.10 Atherosclerotic heart disease of native coronary artery without angina pectoris; E78.00 Pure hypercholesterolemia, unspecified; I89.0 Lymphedema, not elsewhere classified; E03.9 Hypothyroidism, unspecified; Z79.02 Long term (current) use of antithrombotics/antiplatelets; Z20.822 Contact with and (suspected) exposure to COVID-19; Z79.899 Other long term (current) drug therapy; Z95.1 Presence of aortocoronary bypass graft; Z85.528 Personal history of other malignant neoplasm of kidney; Z88.0 Allergy status to penicillin; Z89.412 Acquired absence of left great toe; Z98.61 Coronary angioplasty status
CPT/HCPCS: 36415; 71045; 73630; 80048; 80053; 80202; 84100; 84439; 84443; 84481; 85014; 85018; 85025; 86705; 86709; 86803; 86850; 86900; 86920; 86945; 87070; 87075; 87077; 87186; 87340; 87426; 88304; 88311; 90935; 93005; 93306; 93923; 93970; 99285; C1893; J0690; J0885; J1100; J1170; J2270; J2405; J2543; J2704; J2765; J3010; J3370; J3490; J7030; P9016

== ENCOUNTER 2022-11-23 18:11 | Emergency (ER) | payer MEDICARE, MEDICAID ==
[~2022-11-23] VITALS: Ht 167.6 cm; Wt 73.0 kg
[2022-11-23 18:16] VITALS: BP 127/51; PULSE 76; RESP 16; TEMP 98.8; O2SAT 98
[2022-11-23] MEDS ORDERED: OXYCODONE HCL/ACETAMINOPHEN 5/325MG TABLET PO ONE (21:00)
== END 2022-11-23 23:50 | disposition home or self-care (01) ==
LOC: ER 18:11
DX: I73.9 Peripheral vascular disease, unspecified (principal); E78.00 Pure hypercholesterolemia, unspecified; I10 Essential (primary) hypertension; N18.6 End stage renal disease; Z99.2 Dependence on renal dialysis; Z85.9 Personal history of malignant neoplasm, unspecified; Z79.899 Other long term (current) drug therapy; E03.9 Hypothyroidism, unspecified
CPT/HCPCS: 99283

== ENCOUNTER 2022-12-02 14:10 | Inpatient (IN) | payer MEDICARE, MEDICAID ==
[~2022-12-02] VITALS: Ht 190.5 cm; Wt 88.5 kg
[2022-12-02 14:23] VITALS: O2SAT 100
[2022-12-02] MEDS ORDERED: CEFEPIME 2,000 MG in DEXT 5% WATER 100 ML IV SCH (14:45)
[2022-12-02] MEDS ORDERED: VANCOMYCIN 1G PREMIX 200 ML IV SCH ×2 (14:45)
[2022-12-02] MEDS ORDERED: LACTATED RINGERS 500 ML IV SCH (15:15)
[2022-12-02 15:41] LABS: BASOPHILS % 0.5 % (0.0-2.0); EOSINOPHILS % 2.2 % (0.0-5.0); LYMPHOCYTES % 7.4 % (20.0-50.0); MEAN CORPUSCULAR HEMOGLOBIN 26.1 pg (28.0-32.0); MEAN CORPUSCULAR HGB CONC 31.8 g/dL (31.0-37.0); MEAN CORPUSCULAR VOLUME 81.8 fL (80.0-94.0); MONOCYTES % 7.2 % (2.0-8.0); NEUTROPHILS % 82.7 % (40.0-76.0); PLATELET 173 x1000/uL (130-400); RED BLOOD CELL COUNT 2.68 mill/uL (4.7-6.1); RED CELL DISTRIBUTION WIDTH 22.3 % (11.6-14.6); WHITE BLOOD COUNT 8.8 x1000/uL (4.5-11.0)
[2022-12-02 15:44] LABS: ADD RBC MORPHOLOGY YES; DIFFERENTIAL COMMENT 1
[2022-12-02 15:45] LABS: CHLORIDE 97 mEq/L (98-107); INDEX HEMOLYSI 1 (1-3); INDEX ICTERIC 1 (1-4); INDEX LIPEMIC 1 (1-3); POTASSIUM 3.6 mEq/L (3.5-5.1); SODIUM 133 mEq/L (136-145)
[2022-12-02 15:50] LABS: HEMATOCRIT. 21.9 % (42.0-52.0)
[2022-12-02 15:56] LABS: ALANINE AMINOTRANSFERASE 9 IU/L (13-61); ALBUMIN 2.4 g/dL (3.4-5.0); ASPARTATE AMINOTRANSFERASE 15 IU/L (15-37); BILIRUBIN TOTAL 0.6 mg/dL (0.1-1.0); CALCIUM 8.7 mg/dL (8.5-10.1); CARBON DIOXIDE 31 mEq/L (21-32); CREATININE 3.6 mg/dL (0.6-1.3); GLUCOSE 65 mg/dL (70-105); PROTEIN TOTAL 7.1 g/dL (6.0-8.3); UREA NITROGEN BLOOD 18 mg/dL (7-21)
[2022-12-02 16:49] LABS: PLATELET ESTIMATE NORMAL
[2022-12-02 16:50] LABS: HYPOCHROMASIA 2+
[2022-12-02 16:52] LABS: ANISOCYTOSIS 2+
[2022-12-02 16:53] LABS: OVALOCYTES 1+
[2022-12-03] MEDS ORDERED: GABAPENTIN 300MG CAPSULE PO SCH (00:15)
[2022-12-03] MEDS ORDERED: NALOXONE HCL 0.4MG/ML VIAL IV PRN (00:30)
[2022-12-03 02:00] VITALS: BP 106/49; PULSE 75; RESP 18; TEMP 98.1
[2022-12-03] MEDS ORDERED: LACTULOSE 20G/30ML UDC PO PRN (03:30)
[2022-12-03] MEDS: HYDROCODONE/ACETAMINOPHEN 5/325MG TABLET PO PRN ×2 (03:39→17:16)
[2022-12-03 04:00] VITALS: BP 105/55; PULSE 72; RESP 18; TEMP 97.1
[2022-12-03] MEDS: CLONIDINE 0.2MG TABLET PO SCH ×3 (06:00→20:21)
[2022-12-03] MEDS: HYDRALAZINE HCL 50MG TABLET PO SCH ×3 (06:00→20:21)
[2022-12-03] MEDS: LEVOTHYROXINE SODIUM 25MCG TABLET PO SCH (07:02)
[2022-12-03] MEDS: GABAPENTIN 300MG CAPSULE PO SCH ×2 (07:02→17:15)
[2022-12-03] MEDS ORDERED: POLYMYXIN B SULFATE 500000 UNITS/VIAL ONE ×2 (07:04→08:25)
[2022-12-03] MEDS ORDERED: LIDOCAINE HCL 1% 10 MG/ML 10ML VIAL ONE ×3 (07:04→09:42)
[2022-12-03] MEDS ORDERED: BUPIVACAINE HCL/PF 0.5% (5MG/ML) 10ML ONE ×3 (07:05→09:42)
[2022-12-03 07:48] VITALS: BP 100/44; PULSE 72; RESP 18; TEMP 98.9
[2022-12-03 08:12] LABS: HEMATOCRIT 23.4 % (42.0-52.0); HEMOGLOBIN 7.7 g/dL (14.0-18.0)
[2022-12-03] MEDS: NIFEDIPINE XL 90MG TAB PO SCH ×2 (09:00→17:16)
[2022-12-03] MEDS: CARVEDILOL 12.5MG TABLET PO SCH ×2 (09:00→20:20)
[2022-12-03] MEDS: AMLODIPINE 10MG TABLET PO SCH (09:00)
[2022-12-03] MEDS: LOSARTAN 50 MG TABLET PO SCH (09:00)
[2022-12-03] MEDS ORDERED: FENTANYL CITRATE/PF 50MCG/ML 2ML VIAL ONE ×2 (09:14→09:44)
[2022-12-03] MEDS ORDERED: MIDAZOLAM HCL 2 MG/2 ML VIAL ONE (09:15)
[2022-12-03] MEDS ORDERED: PROPOFOL 200MG/20ML VIAL IV ONE (09:24)
[2022-12-03] MEDS ORDERED: CLINDAMYCIN IN 0.9 % SOD CHLOR 50 ML IV NR (09:45)
[2022-12-03] MEDS ORDERED: VANCOMYCIN HCL 1 GM/VIAL ONE (09:45)
[2022-12-03] MEDS ORDERED: LABETALOL 5MG/ML SYR 20 MG/4 ML SYRINGE IV PRN (10:15)
[2022-12-03] MEDS ORDERED: ONDANSETRON HCL 4MG/2ML INJ IV PRN (10:15)
[2022-12-03] MEDS ORDERED: HYDROMORPHONE HCL/PF 2MG/ML CPJ IV PRN (10:15)
[2022-12-03] MEDS ORDERED: MEPERIDINE HCL/PF 25MG/ML CPJ IV PRN (10:15)
[2022-12-03 11:47] LABS: T4 FREE 0.47 ng/dL (0.76-1.46)
[2022-12-03 11:49] VITALS: BP 127/45; PULSE 64; RESP 19; TEMP 97.3
[2022-12-03] MEDS: OMEPRAZOLE 20MG CAPSULE EXTENDED RELEASE PO SCH (12:34)
[2022-12-03] MEDS: TICAGRELOR 90 MG TABLET PO SCH ×2 (12:34→17:16)
[2022-12-03] MEDS: CINACALCET HCL 30MG TABLET PO SCH (12:35)
[2022-12-03 16:14] VITALS: BP 151/74; PULSE 83; RESP 18; TEMP 97.6
[2022-12-03 19:25] LABS: HEPATITIS B SURFACE ANTIGEN NEGATIVE
[2022-12-03 20:00] VITALS: BP 105/40; PULSE 75; RESP 18; TEMP 98.6
[2022-12-03 21:37] LABS: HEPATITIS C VIR.AB 0.25 INDEXVAL (0.00-0.80)
[2022-12-03 21:38] LABS: HEPATITIS B CORE AB IGM NEGATIVE
[2022-12-03 21:42] LABS: HEPATITIS A AB IGM NEGATIVE (NEGATIVE)
[2022-12-03] MEDS: HYDROCODONE/ACETAMINOPHEN 7.5/325MG TABLET PO PRN (22:11)
[2022-12-03] MEDS: ATORVASTATIN CALCIUM 40MG TABLET PO SCH (22:13)
[2022-12-04] VITALS (14 sets, daily range): BP systolic 103–161; BP diastolic 25–86; PULSE 61–81; RESP 17–20; TEMP 97.1–99.2
[2022-12-04] MEDS: CLONIDINE 0.2MG TABLET PO SCH ×3 (06:00→21:22)
[2022-12-04] MEDS: HYDRALAZINE HCL 50MG TABLET PO SCH ×3 (06:00→21:18)
[2022-12-04] MEDS: GABAPENTIN 300MG CAPSULE PO SCH ×2 (06:31→18:40)
[2022-12-04] MEDS: HYDROCODONE/ACETAMINOPHEN 7.5/325MG TABLET PO PRN ×3 (06:32→18:42)
[2022-12-04] MEDS: LEVOTHYROXINE SODIUM 25MCG TABLET PO SCH (06:32)
[2022-12-04] MEDS: LOSARTAN 50 MG TABLET PO SCH (09:00)
[2022-12-04] MEDS: AMLODIPINE 10MG TABLET PO SCH (09:00)
[2022-12-04] MEDS: NIFEDIPINE XL 90MG TAB PO SCH ×2 (09:00→18:41)
[2022-12-04] MEDS: CARVEDILOL 12.5MG TABLET PO SCH ×2 (09:00→21:17)
[2022-12-04] MEDS: OMEPRAZOLE 20MG CAPSULE EXTENDED RELEASE PO SCH (09:07)
[2022-12-04] MEDS: TICAGRELOR 90 MG TABLET PO SCH ×2 (09:07→18:41)
[2022-12-04] MEDS ORDERED: EPOETIN ALFA 4000UNITS/ML VIAL SUBCUT SCH (21:00)
[2022-12-04] MEDS: ATORVASTATIN CALCIUM 40MG TABLET PO SCH (21:17)
[2022-12-04] MEDS ORDERED: CABO60TA PO (21:56)
[2022-12-04] MEDS ORDERED: LEVO112T7 PO (21:56)
[2022-12-04] MEDS ORDERED: VALS40TA11 PO (21:56)
[2022-12-05] VITALS: BP 108/43; PULSE 70; RESP 18; TEMP 97.7
[2022-12-05] MEDS: HYDROCODONE/ACETAMINOPHEN 7.5/325MG TABLET PO PRN ×3 (02:13→15:55)
[2022-12-05 04:00] VITALS: BP 113/59; PULSE 68; RESP 18; TEMP 97.6
[2022-12-05] MEDS: CLONIDINE 0.2MG TABLET PO SCH ×2 (06:00→15:55)
[2022-12-05] MEDS: HYDRALAZINE HCL 50MG TABLET PO SCH ×2 (06:00→15:56)
[2022-12-05] MEDS: LEVOTHYROXINE SODIUM 25MCG TABLET PO SCH (06:27)
[2022-12-05] MEDS: GABAPENTIN 300MG CAPSULE PO SCH (06:27)
[2022-12-05 08:00] VITALS: BP 116/60; PULSE 66; RESP 18; TEMP 97.5
[2022-12-05] MEDS ORDERED: ASPIRIN 81MG EC TABLET PO SCH (09:00)
[2022-12-05] MEDS: NIFEDIPINE XL 90MG TAB PO SCH (09:50)
[2022-12-05] MEDS: TICAGRELOR 90 MG TABLET PO SCH (09:50)
[2022-12-05] MEDS: CARVEDILOL 12.5MG TABLET PO SCH (09:50)
[2022-12-05] MEDS: OMEPRAZOLE 20MG CAPSULE EXTENDED RELEASE PO SCH (09:51)
[2022-12-05] MEDS: CINACALCET HCL 30MG TABLET PO SCH (09:51)
[2022-12-05] MEDS: LOSARTAN 50 MG TABLET PO SCH (09:51)
[2022-12-05] MEDS: AMLODIPINE 10MG TABLET PO SCH (09:52)
[2022-12-05 15:55] VITALS: BP 120/58; PULSE 62; RESP 62
[2022-12-06] MEDS ORDERED: OMEPRAZOLE 20MG CAPSULE EXTENDED RELEASE PO SCH (07:20)
== END 2022-12-05 16:10 | DRG 981 ==
LOC: ER 14:10 → MICUSO 16:08 → EDBEDREQ 16:10 → 6EST 12-03 01:30
PROVIDERS: ADMIT Internal Medicine; ATTEND Internal Medicine
PROC: 30233N1 Transfusion of Nonautologous Red Blood Cells into Peripheral Vein, Percutaneous Approach (ICD-10-PCS; 2022-12-02)
PROC: 0LDW0ZZ Extraction of Left Foot Tendon, Open Approach (ICD-10-PCS; principal; 2022-12-04)
PROC: 5A1D70Z Performance of Urinary Filtration, Intermittent, Less than 6 Hours Per Day (ICD-10-PCS; 2022-12-04)
DX: E11.52 Type 2 diabetes mellitus with diabetic peripheral angiopathy with gangrene (principal); E43 Unspecified severe protein-calorie malnutrition; N18.6 End stage renal disease; L02.612 Cutaneous abscess of left foot; I13.2 Hypertensive heart and chronic kidney disease with heart failure and with stage 5 chronic kidney disease, or end stage renal disease; L02.611 Cutaneous abscess of right foot; E11.22 Type 2 diabetes mellitus with diabetic chronic kidney disease; D64.9 Anemia, unspecified; F32.A Depression, unspecified; I25.10 Atherosclerotic heart disease of native coronary artery without angina pectoris; E03.9 Hypothyroidism, unspecified; L97.519 Non-pressure chronic ulcer of other part of right foot with unspecified severity; G89.4 Chronic pain syndrome; I50.9 Heart failure, unspecified; J44.9 Chronic obstructive pulmonary disease, unspecified; K59.00 Constipation, unspecified; E11.621 Type 2 diabetes mellitus with foot ulcer; E66.9 Obesity, unspecified; E78.5 Hyperlipidemia, unspecified; I89.0 Lymphedema, not elsewhere classified; R26.81 Unsteadiness on feet; Z89.429 Acquired absence of other toe(s), unspecified side; Z68.24 Body mass index [BMI] 24.0-24.9, adult; Z99.2 Dependence on renal dialysis; Z95.1 Presence of aortocoronary bypass graft; Z88.0 Allergy status to penicillin; Z95.5 Presence of coronary angioplasty implant and graft; Z82.3 Family history of stroke; Z86.73 Personal history of transient ischemic attack (TIA), and cerebral infarction without residual deficits; Z90.5 Acquired absence of kidney; Z79.82 Long term (current) use of aspirin; Z79.02 Long term (current) use of antithrombotics/antiplatelets; Z79.899 Other long term (current) drug therapy; Z82.49 Family history of ischemic heart disease and other diseases of the circulatory system; Z79.4 Long term (current) use of insulin; Z85.528 Personal history of other malignant neoplasm of kidney
CPT/HCPCS: 36415; 73521; 73700; 73721; 80053; 83036; 84439; 84443; 85014; 85018; 85025; 86705; 86709; 86803; 86850; 86900; 86920; 87070; 87075; 87077; 87186; 87340; 87426; 90935; 99285; C1893; J0692; J0885; J1170; J2250; J2704; J3010; J3370; J3490; J7030; J7060; P9016; J8499

== ENCOUNTER 2023-04-15 22:04 | Emergency (ER) | payer MEDICARE, MEDICAID ==
[~2023-04-15] VITALS: Ht 190.5 cm; Wt 98.0 kg
[~2023-04-15 22:04] MED LIST changes: -AMLO10TA80 PO; +CABO60TA PO; -CINA30 MT; -CLON0.2T PO; +LEVO112T7 PO; -LEVO25TA7 PO; +VALS40TA11 PO
[2023-04-15 22:13] VITALS: O2SAT 95
[2023-04-16] MEDS: ACETAMINOPHEN 325MG TABLET PO ONE (00:45)
[2023-04-16 03:26] LABS: BASOPHILS % 1.1 % (0.0-2.0); DIFFERENTIAL COMMENT 0; EOSINOPHILS % 4.2 % (0.0-5.0); HEMATOCRIT. 24.1 % (42.0-52.0); HEMOGLOBIN. 7.9 g/dL (14.0-18.0); LYMPHOCYTES % 10.2 % (20.0-50.0); MEAN CORPUSCULAR HEMOGLOBIN 25.1 pg (28.0-32.0); MEAN CORPUSCULAR HGB CONC 32.7 g/dL (31.0-37.0); MEAN CORPUSCULAR VOLUME 76.6 fL (80.0-94.0); MEAN PLATELET VOLUME 8.5 fl (7.4-10.4); MONOCYTES % 5.3 % (2.0-8.0); NEUTROPHILS % 79.2 % (40.0-76.0); PLATELET 74 x1000/uL (130-400); RED BLOOD CELL COUNT 3.15 mill/uL (4.7-6.1); RED CELL DISTRIBUTION WIDTH 20.9 % (11.6-14.6); WHITE BLOOD COUNT 4.5 x1000/uL (4.5-11.0)
[2023-04-16 03:43] LABS: ALANINE AMINOTRANSFERASE 13 IU/L (10-49); ALBUMIN 3.9 g/dL (3.2-4.8); ASPARTATE AMINOTRANSFERASE 22 IU/L (<34); BILIRUBIN TOTAL 0.5 mg/dL (0.1-1.0); CALCIUM 9.7 mg/dL (8.7-10.4); CARBON DIOXIDE 32 mEq/L (21-32); CHLORIDE 98 mEq/L (98-107); GLUCOSE 69 mg/dL (70-105); POTASSIUM 5.5 mEq/L (3.5-5.1); PROTEIN TOTAL 7.5 g/dL (6.0-8.3); SODIUM 136 mEq/L (136-145); UREA NITROGEN BLOOD 43 mg/dL (9-23)
[2023-04-16] MEDS: MORPHINE SULFATE 4 MG/ML CPJ (NOT FOR IM USE) IV STA (04:00)
[2023-04-16] MEDS: ONDANSETRON HCL 4MG/2ML INJ IV STA (04:00)
[2023-04-16 04:11] LABS: CREATININE 5.8 mg/dL (0.6-1.3)
[2023-04-16 10:14] VITALS: BP 121/60; PULSE 76; RESP 20; TEMP 97.8
== END 2023-04-16 10:16 ==
LOC: ER 22:04 → CANBEDREQ 04-16 07:31 → ER 04-16 10:16
DX: S42.302A Unspecified fracture of shaft of humerus, left arm, initial encounter for closed fracture (principal); E11.9 Type 2 diabetes mellitus without complications; Z99.2 Dependence on renal dialysis; Z79.899 Other long term (current) drug therapy; Z88.0 Allergy status to penicillin; X58.XXXA Exposure to other specified factors, initial encounter; Y93.89 Activity, other specified; Y92.89 Other specified places as the place of occurrence of the external cause; Y99.8 Other external cause status
CPT/HCPCS: 99285; 73030; 96374; 71045; 96375; 80053; 85025; 36415; 73060; 93005; J2405; J2270

== ENCOUNTER 2023-11-08 20:39 | Emergency (ER) | payer MEDICARE, MEDICAID ==
[~2023-11-08] VITALS: Ht 182.9 cm; Wt 68.0 kg
[~2023-11-08 20:39] MED LIST changes: -HYDR-4135 MT; +HYDR50TA40 MT; -NIFE20CA PO; +NIFE20CA8 PO
[2023-11-08 20:50] VITALS: O2SAT 98
[2023-11-08 23:48] VITALS: BP 134/67; PULSE 77; RESP 15; O2SAT 96
== END 2023-11-09 00:12 ==
LOC: ER 20:39
DX: R06.02 Shortness of breath (principal); D64.9 Anemia, unspecified; J44.9 Chronic obstructive pulmonary disease, unspecified; Z99.2 Dependence on renal dialysis; Z88.0 Allergy status to penicillin; Z88.5 Allergy status to narcotic agent; Z88.8 Allergy status to other drugs, medicaments and biological substances; Z79.899 Other long term (current) drug therapy
CPT/HCPCS: 71045; 93005; 99283

== ENCOUNTER 2024-01-03 19:51 | Inpatient (IN) | payer MEDICARE, MEDICAID ==
[~2024-01-03] VITALS: Ht 180.3 cm; Wt 83.5 kg
[2024-01-03] MEDS: ONDANSETRON HCL 4MG/2ML INJ IV ONE (21:15)
[2024-01-03 21:53] LABS: CARBON DIOXIDE 29 mEq/L (21-32); CHLORIDE 101 mEq/L (98-107); POTASSIUM 3.8 mEq/L (3.5-5.1); SODIUM 141 mEq/L (136-145)
[2024-01-03 21:54] LABS: CALCIUM 9.7 mg/dL (8.7-10.4)
[2024-01-03 21:57] LABS: INR 1.2; PROTHROMBIN TIME 13.5 sec (9.6-11.0)
[2024-01-03 21:59] LABS: GLUCOSE 82 mg/dL (70-105); UREA NITROGEN BLOOD 15 mg/dL (9-23)
[2024-01-03 22:00] LABS: ALANINE AMINOTRANSFERASE 46 IU/L (10-49); ASPARTATE AMINOTRANSFERASE 91 IU/L (<34)
[2024-01-03 22:01] LABS: ALBUMIN 3.6 g/dL (3.2-4.8); BILIRUBIN DIRECT 1.2 mg/dL (<=3.0); BILIRUBIN TOTAL 1.8 mg/dL (0.1-1.0); PROTEIN TOTAL 7.3 g/dL (6.0-8.3)
[2024-01-03 22:13] LABS: CREATININE 3.8 mg/dL (0.6-1.3)
[2024-01-03] MEDS: ONDANSETRON HCL 4MG/2ML INJ IV NR (23:28)
[2024-01-03] MEDS: PANTOPRAZOLE SODIUM 40 MG/VIAL IV NR (23:29)
[2024-01-03] MEDS: PANTOPRAZOLE SODIUM 40 MG/VIAL IV ONE (23:29)
[2024-01-04] VITALS (26 sets, daily range): BP systolic 77–203; BP diastolic 51–130; PULSE 73–126; RESP 15–30; TEMP 36.4736–36.9474; O2SAT 100
[2024-01-04] MEDS: PIPERACILLIN/TAZO 3.375G/50ML 50 ML IV STA (01:58)
[2024-01-04] MEDS ORDERED: SODIUM CHLORIDE 0.9% 1,000 ML IV ONE (02:00)
[2024-01-04] MEDS ORDERED: ONDANSETRON HCL 4MG/2ML INJ IV PRN (02:00)
[2024-01-04] MEDS ORDERED: IPRATROPIUM/ALBUTEROL 0.5-3(2.5)MG/3ML NEB HHN PRN (02:00)
[2024-01-04] MEDS ORDERED: CLONIDINE 0.1MG TABLET PO PRN (02:00)
[2024-01-04] MEDS ORDERED: MAGNESIUM/ALUMINUM HYDROXIDE/SIMETHICONE 30ML UDC PO PRN (02:00)
[2024-01-04] MEDS: PANTOPRAZOLE SODIUM 40 MG/VIAL IV SCH (09:51)
[2024-01-04] MEDS: PIPERACILLIN/TAZO 3.375G/50ML 50 ML IV SCH (10:00)
[2024-01-04 10:09] LABS: POTASSIUM 3.8 mEq/L (3.5-5.1)
[2024-01-04 10:10] LABS: CALCIUM 9.1 mg/dL (8.7-10.4)
[2024-01-04 10:15] LABS: CREATININE 4.2 mg/dL (0.6-1.3)
[2024-01-04 10:20] LABS: THYROID STIMULATING HORMONE 45.75 uIU/mL (0.55-4.78)
[2024-01-04 10:28] LABS: TROPONIN I HIGH SENSITIVITY 395 ng/L (3.0-53)
[2024-01-04] MEDS: DEXTROSE 50% WATER 50ML SYRINGE IV NR (10:44)
[2024-01-04] MEDS: DEXT 5%/0.9% NACL 1,000 ML IV ONE (11:48)
[2024-01-04] MEDS: DEXT 10% WATER 1,000 ML IV SCH (12:48)
[2024-01-04 13:07] LABS: HEMATOCRIT. 26.7 % (42.0-52.0); HEMOGLOBIN. 8.3 g/dL (14.0-18.0); MEAN CORPUSCULAR HEMOGLOBIN 30.8 pg (28.0-32.0); MEAN CORPUSCULAR HGB CONC 30.9 g/dL (31.0-37.0); MEAN CORPUSCULAR VOLUME 99.8 fL (80.0-94.0); MEAN PLATELET VOLUME 9.6 fl (7.4-10.4); RED BLOOD CELL COUNT 2.68 mill/uL (4.7-6.1); RED CELL DISTRIBUTION WIDTH 22.1 % (11.6-14.6); WHITE BLOOD COUNT 6.4 x1000/uL (4.5-11.0)
[2024-01-04] MEDS: LEVOTHYROXINE SODIUM 100 MCG/ VIAL IV SCH (13:38)
[2024-01-04 14:07] LABS: DIFFERENTIAL COMMENT 1
[2024-01-04 14:10] LABS: PLATELET 17 x1000/uL (130-400)
[2024-01-04 14:16] LABS: T4 FREE 0.58 ng/dL (0.89-1.76)
[2024-01-04] MEDS ORDERED: NOREPINEPHRINE 8 MG in DEXT 5% WATER 242 ML IV PRN (15:30)
[2024-01-04] MEDS: VANCOMYCIN 1.25GM PMX (XELLIA) 250 ML IV NR (17:00)
[2024-01-04 17:45] LABS: BG BASE EXCESS -0.8 mmol/L (-2.0-3.0); BG CARBOXYHEMOGLOBIN 0.1 % (0.5-1.5); BG DEOXYHEMOGLOBIN 0.3 % (0.0-5.0); BG FRACTION INSPIRED OXYGEN 100; BG HCO3 ACT 27.9 mmol/L (21.0-28.0); BG METHEMOGLOBIN 0.3 % (0.5-1.5); BG OXYGEN SATURATION 99.7 % (94.0-98.0); BG OXYHEMOGLOBIN 99.3 % (94.0-98.0); BG PCO2 70.6 mmHg (35.0-48.0); BG PH 7.215 (7.350-7.450); BG SAMPLE SITE RIGHT FEMORAL; BG TOTAL HEMOGLOBIN 10.1 g/dL (13.5-17.5); BG VENT MODE VENT - AC
[2024-01-04] MEDS: PROPOFOL 10MG/ML 100ML 100 ML IV PRN (17:53)
[2024-01-04] MEDS: NOREPINEPHRINE 8MG/250ML PMX 250 ML IV PRN (17:53)
[2024-01-04 19:46] LABS: ANISOCYTOSIS 2+; PLATELET ESTIMATE MARKEDLY DECREASED
[2024-01-04 20:37] LABS: HEPATITIS B SURFACE ANTIGEN NEGATIVE (Negative)
[2024-01-04 20:58] LABS: HEPATITIS A AB IGM NEGATIVE (Negative); HEPATITIS B CORE AB IGM NEGATIVE (Negative)
[2024-01-04 20:59] LABS: HEPATITIS C AB NON REACTIVE (Neg) (Negative)
[2024-01-04] MEDS ORDERED: MEROPENEM 500MG/50ML 50 ML IV SCH (22:00)
[2024-01-04] MEDS: HYDROCORTISONE SOD SUCCINATE 100 MG/2 ML VIAL IV SCH (22:12)
[2024-01-04] MEDS: DEXTROSE 50% WATER 50ML SYRINGE IV ONE (22:20)
[2024-01-05] VITALS (106 sets, daily range): BP systolic 61–215; BP diastolic 24–149; PULSE 59–92; RESP 0–29; TEMP 36.00288–36.9474; O2SAT 97–100
[2024-01-05] MEDS: MEROPENEM 1G/100ML IV SCH (00:37)
[2024-01-05] MEDS: VANCOMYCIN 1.25GM PMX (XELLIA) 250 ML IV NR (00:37)
[2024-01-05] MEDS: DEXTROSE 50% WATER 50ML SYRINGE IV ONE (03:43)
[2024-01-05] MEDS: NOREPINEPHRINE 32 MG in DEXT 5% WATER 218 ML IV PRN (06:08)
[2024-01-05 10:26] LABS: BG BASE EXCESS -1.1 mmol/L (-2.0-3.0); BG CARBOXYHEMOGLOBIN 0.2 % (0.5-1.5); BG DEOXYHEMOGLOBIN 0.7 % (0.0-5.0); BG FRACTION INSPIRED OXYGEN 40; BG HCO3 ACT 23.7 mmol/L (21.0-28.0); BG METHEMOGLOBIN 0.3 % (0.5-1.5); BG OXYGEN SATURATION 99.3 % (94.0-98.0); BG OXYHEMOGLOBIN 98.8 % (94.0-98.0); BG PCO2 39.9 mmHg (35.0-48.0); BG PH 7.392 (7.350-7.450); BG PO2 144.8 mmHg (83.0-108.0); BG TOTAL HEMOGLOBIN 9.6 g/dL (13.5-17.5); BG VENT MODE VENT - AC
[2024-01-05 10:27] LABS: HEMATOCRIT. 29.8 % (42.0-52.0); HEMOGLOBIN. 9.2 g/dL (14.0-18.0); MEAN CORPUSCULAR HEMOGLOBIN 31.1 pg (28.0-32.0); MEAN CORPUSCULAR HGB CONC 30.9 g/dL (31.0-37.0); MEAN CORPUSCULAR VOLUME 100.7 fL (80.0-94.0); MEAN PLATELET VOLUME 9.5 fl (7.4-10.4); RED BLOOD CELL COUNT 2.96 mill/uL (4.7-6.1); RED CELL DISTRIBUTION WIDTH 22.2 % (11.6-14.6); WHITE BLOOD COUNT 12.9 x1000/uL (4.5-11.0)
[2024-01-05 10:32] LABS: CHLORIDE 96 mEq/L (98-107); POTASSIUM 4.6 mEq/L (3.5-5.1); SODIUM 135 mEq/L (136-145)
[2024-01-05 10:33] LABS: CALCIUM 9.1 mg/dL (8.7-10.4); CARBON DIOXIDE 26 mEq/L (21-32)
[2024-01-05 10:36] LABS: GLUCOSE FASTING 73 mg/dL (70-105)
[2024-01-05 10:37] LABS: TRIGLYCERIDE 98 mg/dL (0-150)
[2024-01-05 10:38] LABS: CREATININE 4.8 mg/dL (0.6-1.3); GLUCOSE 72 mg/dL (70-105); UREA NITROGEN BLOOD 28 mg/dL (9-23)
[2024-01-05 10:40] LABS: ALANINE AMINOTRANSFERASE 184 IU/L (10-49); ALBUMIN 3.2 g/dL (3.2-4.8); ASPARTATE AMINOTRANSFERASE 286 IU/L (<34); BILIRUBIN TOTAL 2.8 mg/dL (0.1-1.0); PROTEIN TOTAL 6.7 g/dL (6.0-8.3)
[2024-01-05 10:44] LABS: DIFFERENTIAL COMMENT 1
[2024-01-05 11:02] LABS: LACTIC ACID 6.7 mmol/L (0.4-2.0); TROPONIN I HIGH SENSITIVITY 2871 ng/L (3.0-53)
[2024-01-05] MEDS: DEXTROSE 50% WATER 50ML SYRINGE IV PRN (12:39)
[2024-01-05 14:52] LABS: NUCLEATED RED BLOOD CELLS 1 /100 WBC
[2024-01-05 14:53] LABS: ANISOCYTOSIS 3+; PLATELET ESTIMATE MARKEDLY DECREASED
[2024-01-05 14:54] LABS: PLATELET 49 x1000/uL (130-400)
[2024-01-05] MEDS ORDERED: PIPERACILLIN/TAZOBACTAM 3.375 G in DEXTROSE 5% WATER 50 ML IV SCH (16:00)
[2024-01-05] MEDS: IPRATROPIUM/ALBUTEROL 0.5-3(2.5)MG/3ML NEB HHN SCH (20:35)
[2024-01-05] MEDS: MAGNESIUM 1 G PREMIX 100 ML IV NR (21:46)
[2024-01-05 22:43] LABS: HEPATITIS B SURFACE ANTIGEN NEGATIVE (Negative)
[2024-01-05 23:03] LABS: HEPATITIS A AB IGM NEGATIVE (Negative)
[2024-01-05 23:04] LABS: HEPATITIS B CORE AB IGM NEGATIVE (Negative); HEPATITIS C AB NON REACTIVE (Neg) (Negative)
[2024-01-06] VITALS (109 sets, daily range): BP systolic 72–189; BP diastolic 42–167; PULSE 70–94; RESP 16–30; TEMP 36.50292–37.28076; O2SAT 96–100
[2024-01-06 00:24] LABS: CHLORIDE 95 mEq/L (98-107); POTASSIUM 3.9 mEq/L (3.5-5.1); SODIUM 132 mEq/L (136-145)
[2024-01-06 00:25] LABS: CALCIUM 8.8 mg/dL (8.7-10.4); CARBON DIOXIDE 26 mEq/L (21-32)
[2024-01-06 00:30] LABS: CREATININE 3.8 mg/dL (0.6-1.3); GLUCOSE 156 mg/dL (70-105); UREA NITROGEN BLOOD 21 mg/dL (9-23)
[2024-01-06 00:32] LABS: ALANINE AMINOTRANSFERASE 435 IU/L (10-49); ASPARTATE AMINOTRANSFERASE 715 IU/L (<34); PHOSPHORUS 4.3 mg/dL (2.5-4.9)
[2024-01-06 00:33] LABS: BILIRUBIN TOTAL 2.8 mg/dL (0.1-1.0); PROTEIN TOTAL 6.3 g/dL (6.0-8.3)
[2024-01-06 06:20] LABS: HEMATOCRIT 25.9 % (42.0-52.0); HEMOGLOBIN 8.4 g/dL (14.0-18.0); MEAN CORPUSCULAR HEMOGLOBIN 32.2 pg (28.0-32.0); MEAN CORPUSCULAR HGB CONC 32.4 g/dL (31.0-37.0); MEAN CORPUSCULAR VOLUME 99.6 fL (80.0-94.0); RED BLOOD CELL COUNT 2.61 mill/uL (4.7-6.1); RED CELL DISTRIBUTION WIDTH 21.4 % (11.6-14.6); WHITE BLOOD COUNT 11.6 x1000/uL (4.5-11.0)
[2024-01-06 06:27] LABS: PLATELET 26 x1000/uL (130-400)
[2024-01-06 06:28] LABS: CHLORIDE 95 mEq/L (98-107); POTASSIUM 4.4 mEq/L (3.5-5.1); SODIUM 132 mEq/L (136-145)
[2024-01-06 06:29] LABS: CALCIUM 9.1 mg/dL (8.7-10.4); CARBON DIOXIDE 20 mEq/L (21-32)
[2024-01-06 06:34] LABS: CREATININE 4.1 mg/dL (0.6-1.3); GLUCOSE 131 mg/dL (70-105); UREA NITROGEN BLOOD 25 mg/dL (9-23)
[2024-01-06 06:36] LABS: ALANINE AMINOTRANSFERASE 504 IU/L (10-49); ALBUMIN 3.2 g/dL (3.2-4.8); ASPARTATE AMINOTRANSFERASE 758 IU/L (<34); BILIRUBIN TOTAL 2.7 mg/dL (0.1-1.0); PROTEIN TOTAL 6.6 g/dL (6.0-8.3)
[2024-01-06 08:09] LABS: ALPHA FETOPROTEIN TUMOR MARKER 3.8 ng/mL (0.0-6.9)
[2024-01-06 10:52] LABS: BG CARBOXYHEMOGLOBIN 0.2 % (0.5-1.5); BG DEOXYHEMOGLOBIN 0.1 % (0.0-5.0); BG HCO3 ACT 16.9 mmol/L (21.0-28.0); BG METHEMOGLOBIN 0.3 % (0.5-1.5); BG OXYGEN SATURATION 99.9 % (94.0-98.0); BG OXYHEMOGLOBIN 99.4 % (94.0-98.0); BG PCO2 28.3 mmHg (35.0-48.0); BG PH 7.394 (7.350-7.450); BG PO2 195.5 mmHg (83.0-108.0); BG SAMPLE SITE LEFT FEMORAL; BG TOTAL HEMOGLOBIN 8.9 g/dL (13.5-17.5); BG VENT MODE VENT - AC
[2024-01-06] MEDS: VANCOMYCIN 500MG PREMIX 100 ML IV SCH (12:05)
[2024-01-06] MEDS: MEROPENEM 500MG/50ML IV SCH (16:26)
[2024-01-06 22:14] LABS: D-DIMER 2.24 mg/L FEU (<0.50); INR 1.4; PROTHROMBIN TIME 15.1 sec (9.6-11.0)
[2024-01-06 22:17] LABS: AMMONIA 30 uMol/L (<32)
[2024-01-06 22:31] LABS: HEPATITIS B SURFACE ANTIGEN NEGATIVE (Negative)
[2024-01-06 22:52] LABS: HEPATITIS A AB IGM NEGATIVE (Negative); HEPATITIS B CORE AB IGM NEGATIVE (Negative)
[2024-01-06 22:53] LABS: HEPATITIS C AB NON REACTIVE (Neg) (Negative)
[2024-01-07] VITALS (96 sets, daily range): BP systolic 103–165; BP diastolic 46–131; PULSE 73–96; RESP 17–29; TEMP 36.22512–37.2252; O2SAT 91–100
[2024-01-07] MEDS: PROPOFOL 10MG/ML 100ML 100 ML IV PRN (01:48)
[2024-01-07] MEDS: PROPOFOL 10MG/ML 100ML 100 ML IV SCH (10:58)
[2024-01-07] MEDS ORDERED: LIDOCAINE HCL 1% 10 MG/ML 10ML VIAL ONE (11:02)
[2024-01-07 13:07] LABS: C-PEPTIDE 22.5 ng/mL (1.1-4.4); INSULIN 51.3 uIU/mL (2.6-24.9)
[2024-01-07] MEDS: EPOETIN ALFA-EPBX 4,000 UNIT/ML VIAL SUBCUT SCH (21:31)
[2024-01-07] MEDS: VANCOMYCIN 500MG PREMIX 100 ML IV SCH (21:31)
[2024-01-08] VITALS (113 sets, daily range): BP systolic 101–160; BP diastolic 46–125; PULSE 68–105; RESP 17–33; TEMP 35.5584–36.61404; O2SAT 0–100
[2024-01-08 08:23] LABS: CARBON DIOXIDE 24 mEq/L (21-32); CHLORIDE 95 mEq/L (98-107); POTASSIUM 3.3 mEq/L (3.5-5.1); SODIUM 134 mEq/L (136-145)
[2024-01-08 08:24] LABS: CALCIUM 8.4 mg/dL (8.7-10.4)
[2024-01-08 08:28] LABS: CREATININE 4.1 mg/dL (0.6-1.3); GLUCOSE 158 mg/dL (70-105)
[2024-01-08 08:29] LABS: TRIGLYCERIDE 228 mg/dL (0-150); UREA NITROGEN BLOOD 35 mg/dL (9-23)
[2024-01-08 08:30] LABS: ALANINE AMINOTRANSFERASE 474 IU/L (10-49); ALBUMIN 2.9 g/dL (3.2-4.8); ASPARTATE AMINOTRANSFERASE 426 IU/L (<34)
[2024-01-08 08:31] LABS: BILIRUBIN TOTAL 2.1 mg/dL (0.1-1.0); PHOSPHORUS 4.2 mg/dL (2.5-4.9)
[2024-01-08 08:51] LABS: MEAN CORPUSCULAR HEMOGLOBIN 31.3 pg (28.0-32.0); MEAN CORPUSCULAR HGB CONC 32.2 g/dL (31.0-37.0); MEAN CORPUSCULAR VOLUME 97.1 fL (80.0-94.0); MEAN PLATELET VOLUME 10.3 fl (7.4-10.4); RED BLOOD CELL COUNT 2.14 mill/uL (4.7-6.1)
[2024-01-08 09:05] LABS: DIFFERENTIAL COMMENT 1
[2024-01-08 09:06] LABS: HEMATOCRIT. 20.8 % (42.0-52.0); HEMOGLOBIN. 6.7 g/dL (14.0-18.0); PLATELET 15 x1000/uL (130-400)
[2024-01-08] MEDS: LEVOTHYROXINE SODIUM 100 MCG/ VIAL IV SCH (10:02)
[2024-01-08 10:30] LABS: HEMATOCRIT. 21.3 % (42.0-52.0); HEMOGLOBIN. 7.1 g/dL (14.0-18.0); MEAN CORPUSCULAR HEMOGLOBIN 32.4 pg (28.0-32.0); MEAN CORPUSCULAR HGB CONC 33.6 g/dL (31.0-37.0); MEAN CORPUSCULAR VOLUME 96.7 fL (80.0-94.0); MEAN PLATELET VOLUME 10.4 fl (7.4-10.4); RED CELL DISTRIBUTION WIDTH 19.2 % (11.6-14.6); WHITE BLOOD COUNT 6.9 x1000/uL (4.5-11.0)
[2024-01-08 10:35] LABS: DIFFERENTIAL COMMENT 1
[2024-01-08 10:37] LABS: CHLORIDE 96 mEq/L (98-107); POTASSIUM 3.5 mEq/L (3.5-5.1); SODIUM 133 mEq/L (136-145)
[2024-01-08 10:38] LABS: CALCIUM 8.4 mg/dL (8.7-10.4); CARBON DIOXIDE 23 mEq/L (21-32)
[2024-01-08 10:39] LABS: PLATELET 15 x1000/uL (130-400)
[2024-01-08 10:43] LABS: CREATININE 4.2 mg/dL (0.6-1.3); GLUCOSE 154 mg/dL (70-105); UREA NITROGEN BLOOD 35 mg/dL (9-23)
[2024-01-08 10:45] LABS: ALANINE AMINOTRANSFERASE 459 IU/L (10-49); ASPARTATE AMINOTRANSFERASE 394 IU/L (<34); BILIRUBIN TOTAL 2.1 mg/dL (0.1-1.0); PROTEIN TOTAL 6.2 g/dL (6.0-8.3)
[2024-01-08 11:16] LABS: BG CARBOXYHEMOGLOBIN 0.1 % (0.5-1.5); BG DEOXYHEMOGLOBIN 0.3 % (0.0-5.0); BG FRACTION INSPIRED OXYGEN 35; BG HCO3 ACT 20.6 mmol/L (21.0-28.0); BG METHEMOGLOBIN 0.3 % (0.5-1.5); BG OXYGEN SATURATION 99.7 % (94.0-98.0); BG OXYHEMOGLOBIN 99.3 % (94.0-98.0); BG PCO2 26.9 mmHg (35.0-48.0); BG PH 7.501 (7.350-7.450); BG PO2 189.3 mmHg (83.0-108.0); BG SAMPLE SITE RIGHT FEMORAL; BG TOTAL HEMOGLOBIN 8.5 g/dL (13.5-17.5); BG VENT MODE VENT - AC
[2024-01-08] MEDS: PROPOFOL 10MG/ML 100ML 100 ML IV PRN (12:58)
[2024-01-08 15:48] LABS: NUCLEATED RED BLOOD CELLS 10 /100 WBC
[2024-01-08 15:49] LABS: ANISOCYTOSIS 2+; PLATELET ESTIMATE MARKEDLY DECREASED
[2024-01-08] MEDS: HYDROCORTISONE SOD SUCCINATE 100 MG/2 ML VIAL IV SCH (21:24)
[2024-01-08 23:02] LABS: ANISOCYTOSIS 1+; NUCLEATED RED BLOOD CELLS 3 /100 WBC; PLATELET ESTIMATE MARKEDLY DECREASED
[2024-01-09] VITALS (93 sets, daily range): BP systolic 106–168; BP diastolic 68–122; PULSE 72–101; RESP 16–32; TEMP 36.3918–39.33648; O2SAT 97–100
[2024-01-09 06:31] LABS: HEMOGLOBIN. 8.5 g/dL (14.0-18.0); MEAN CORPUSCULAR HEMOGLOBIN 32.3 pg (28.0-32.0); MEAN CORPUSCULAR HGB CONC 33.9 g/dL (31.0-37.0); MEAN CORPUSCULAR VOLUME 95.1 fL (80.0-94.0); MEAN PLATELET VOLUME 9.3 fl (7.4-10.4); RED BLOOD CELL COUNT 2.63 mill/uL (4.7-6.1); WHITE BLOOD COUNT 7.2 x1000/uL (4.5-11.0)
[2024-01-09 06:37] LABS: CARBON DIOXIDE 23 mEq/L (21-32); CHLORIDE 94 mEq/L (98-107); POTASSIUM 3.9 mEq/L (3.5-5.1); SODIUM 133 mEq/L (136-145)
[2024-01-09 06:39] LABS: CALCIUM 8.4 mg/dL (8.7-10.4)
[2024-01-09 06:43] LABS: CREATININE 4.6 mg/dL (0.6-1.3); GLUCOSE 121 mg/dL (70-105); TRIGLYCERIDE 236 mg/dL (0-150); UREA NITROGEN BLOOD 44 mg/dL (9-23)
[2024-01-09 06:45] LABS: PHOSPHORUS 5.1 mg/dL (2.5-4.9)
[2024-01-09 06:47] LABS: INR 1.2
[2024-01-09 07:07] LABS: DIFFERENTIAL COMMENT 1; PLATELET 45 x1000/uL (130-400)
[2024-01-09 09:50] LABS: BG BASE EXCESS -1.7 mmol/L (-2.0-3.0); BG CARBOXYHEMOGLOBIN 0.3 % (0.5-1.5); BG DEOXYHEMOGLOBIN 0.8 % (0.0-5.0); BG FRACTION INSPIRED OXYGEN 40; BG HCO3 ACT 21.3 mmol/L (21.0-28.0); BG METHEMOGLOBIN 0.3 % (0.5-1.5); BG OXYGEN SATURATION 99.2 % (94.0-98.0); BG OXYHEMOGLOBIN 98.6 % (94.0-98.0); BG PCO2 26.7 mmHg (35.0-48.0); BG PH 7.519 (7.350-7.450); BG PO2 162.2 mmHg (83.0-108.0); BG SAMPLE SITE LEFT FEMORAL; BG TOTAL HEMOGLOBIN 4.5 g/dL (13.5-17.5); BG VENT MODE VENT - SIMV
[2024-01-09] MEDS: ACETAMINOPHEN 325MG TABLET PO PRN (10:31)
[2024-01-09 11:22] LABS: ATYPICAL LYMPHOCYTES 1; NUCLEATED RED BLOOD CELLS 37 /100 WBC
[2024-01-09 11:23] LABS: ANISOCYTOSIS 1+; PLATELET ESTIMATE DECREASED
[2024-01-09 12:13] LABS: HEMATOCRIT 25.1 % (42.0-52.0); HEMOGLOBIN 8.3 g/dL (14.0-18.0)
[2024-01-09] MEDS ORDERED: PROPOFOL 10MG/ML 100ML 100 ML IV PRN (22:00)
[2024-01-10] VITALS (102 sets, daily range): BP systolic 47–152; BP diastolic 23–125; PULSE 66–102; RESP 0–24; TEMP 36.55848–36.9474; O2SAT 93–100
[2024-01-10 06:48] LABS: HEMATOCRIT. 24.7 % (42.0-52.0); HEMOGLOBIN. 8.3 g/dL (14.0-18.0); MEAN CORPUSCULAR HEMOGLOBIN 32.4 pg (28.0-32.0); MEAN CORPUSCULAR HGB CONC 33.6 g/dL (31.0-37.0); MEAN CORPUSCULAR VOLUME 96.5 fL (80.0-94.0); MEAN PLATELET VOLUME 10.6 fl (7.4-10.4); RED BLOOD CELL COUNT 2.56 mill/uL (4.7-6.1); RED CELL DISTRIBUTION WIDTH 19.9 % (11.6-14.6)
[2024-01-10 07:14] LABS: POTASSIUM 3.6 mEq/L (3.5-5.1)
[2024-01-10 07:15] LABS: CALCIUM 8.2 mg/dL (8.7-10.4)
[2024-01-10 07:22] LABS: CREATININE 5.4 mg/dL (0.6-1.3)
[2024-01-10 07:48] LABS: DIFFERENTIAL COMMENT 1
[2024-01-10 07:52] LABS: PLATELET 28 x1000/uL (130-400)
[2024-01-10 11:41] LABS: NUCLEATED RED BLOOD CELLS 27 /100 WBC
[2024-01-10 11:42] LABS: ANISOCYTOSIS 2+; PLATELET ESTIMATE MARKEDLY DECREASED
[2024-01-11] VITALS (105 sets, daily range): BP systolic 51–175; BP diastolic 20–129; PULSE 63–96; RESP 10–29; TEMP 36.6696–37.16964; O2SAT 86–100
[2024-01-11 04:45] LABS: CHLORIDE 94 mEq/L (98-107); HEMATOCRIT. 27.3 % (42.0-52.0); HEMOGLOBIN. 9.1 g/dL (14.0-18.0); MEAN CORPUSCULAR HEMOGLOBIN 32.2 pg (28.0-32.0); MEAN CORPUSCULAR HGB CONC 33.3 g/dL (31.0-37.0); MEAN CORPUSCULAR VOLUME 96.8 fL (80.0-94.0); MEAN PLATELET VOLUME 10.3 fl (7.4-10.4); POTASSIUM 3.2 mEq/L (3.5-5.1); RED BLOOD CELL COUNT 2.82 mill/uL (4.7-6.1); RED CELL DISTRIBUTION WIDTH 19.2 % (11.6-14.6); SODIUM 133 mEq/L (136-145)
[2024-01-11 04:46] LABS: CARBON DIOXIDE 27 mEq/L (21-32)
[2024-01-11 04:47] LABS: CALCIUM 8.5 mg/dL (8.7-10.4)
[2024-01-11 04:51] LABS: CREATININE 4.8 mg/dL (0.6-1.3); GLUCOSE 101 mg/dL (70-105); IRON 181 ug/dL (65-175)
[2024-01-11 04:52] LABS: PROTEIN TOTAL 6.1 g/dL (6.0-8.3); UREA NITROGEN BLOOD 46 mg/dL (9-23)
[2024-01-11 04:53] LABS: ALANINE AMINOTRANSFERASE 90 IU/L (10-49); ALBUMIN 3.2 g/dL (3.2-4.8); AMMONIA < 17 uMol/L (<32); ASPARTATE AMINOTRANSFERASE 96 IU/L (<34)
[2024-01-11 04:54] LABS: BILIRUBIN TOTAL 2.9 mg/dL (0.1-1.0); TOTAL IRON BINDING CAPACITY 208 ug/dl (250-425)
[2024-01-11 05:00] LABS: FOLIC ACID (FOLATE) SERUM 15.88 ng/mL (>5.38)
[2024-01-11 05:01] LABS: FERRITIN > 1650 ng/mL (22-322)
[2024-01-11 05:06] LABS: VITAMIN B12 SERUM > 2000 pg/mL (211-911)
[2024-01-11 05:51] LABS: DIFFERENTIAL COMMENT 1; PLATELET 35 x1000/uL (130-400)
[2024-01-11 09:49] LABS: BG BASE EXCESS 2.5 mmol/L (-2.0-3.0); BG CARBOXYHEMOGLOBIN 0.2 % (0.5-1.5); BG DEOXYHEMOGLOBIN 0.7 % (0.0-5.0); BG FRACTION INSPIRED OXYGEN 40; BG HCO3 ACT 26.2 mmol/L (21.0-28.0); BG METHEMOGLOBIN 0.3 % (0.5-1.5); BG OXYGEN SATURATION 99.3 % (94.0-98.0); BG OXYHEMOGLOBIN 98.8 % (94.0-98.0); BG PCO2 36.7 mmHg (35.0-48.0); BG PH 7.471 (7.350-7.450); BG PO2 170.9 mmHg (83.0-108.0); BG SAMPLE SITE LEFT RADIAL; BG TOTAL HEMOGLOBIN 9.2 g/dL (13.5-17.5); BG VENT MODE VENT - SIMV
[2024-01-11 13:34] LABS: BG BASE EXCESS 1.8 mmol/L (-2.0-3.0); BG CARBOXYHEMOGLOBIN 0.8 % (0.5-1.5); BG DEOXYHEMOGLOBIN 0.8 % (0.0-5.0); BG FRACTION INSPIRED OXYGEN 40; BG HCO3 ACT 25.4 mmol/L (21.0-28.0); BG METHEMOGLOBIN 0.3 % (0.5-1.5); BG OXYGEN SATURATION 99.2 % (94.0-98.0); BG OXYHEMOGLOBIN 98.1 % (94.0-98.0); BG PCO2 35.2 mmHg (35.0-48.0); BG PH 7.476 (7.350-7.450); BG PO2 193.3 mmHg (83.0-108.0); BG SAMPLE SITE RIGHT RADIAL; BG TOTAL RESPIRATORY RATE 14 b/min; BG VENT MODE VENT - CPAP
[2024-01-11] MEDS ORDERED: MORPHINE SULFATE 250 MG in DEXT 5% WATER 240 ML IV PRN (15:15)
[2024-01-11] MEDS ORDERED: LORAZEPAM 2MG/ML INJ IV PRN (15:15)
[2024-01-11] MEDS: MORPHINE SULFATE 2 MG/ML INJ (NOT FOR IM USE) IV NR ×2 (15:49→22:09)
[2024-01-11] MEDS ORDERED: PROPOFOL 10MG/ML 100ML 100 ML IV PRN (18:30)
[2024-01-11 20:23] LABS: ANISOCYTOSIS 1+; NUCLEATED RED BLOOD CELLS 10 /100 WBC; PLATELET ESTIMATE MARKEDLY DECREASED
[2024-01-11 21:53] LABS: HEPATITIS B SURFACE ANTIGEN NEGATIVE (Negative)
[2024-01-11 22:13] LABS: HEPATITIS A AB IGM NEGATIVE (Negative)
[2024-01-11 22:14] LABS: HEPATITIS B CORE AB IGM NEGATIVE (Negative)
[2024-01-11 22:15] LABS: HEPATITIS C AB NON REACTIVE (Neg) (Negative)
[2024-01-12] VITALS (53 sets, daily range): BP systolic 77–166; BP diastolic 17–102; PULSE 63–91; RESP 14–30; TEMP 36.3918–37.16964; O2SAT 96–100
[2024-01-12] MEDS: MORPHINE SULFATE 250 MG in DEXT 5% WATER 250 ML IV PRN (04:46)
[2024-01-12 06:01] LABS: BASOPHILS % 0.4 % (0.0-2.0); EOSINOPHILS % 0.2 % (0.0-5.0); HEMATOCRIT. 30.9 % (42.0-52.0); HEMOGLOBIN. 10.2 g/dL (14.0-18.0); LYMPHOCYTES % 3.2 % (20.0-50.0); MEAN CORPUSCULAR HEMOGLOBIN 32.2 pg (28.0-32.0); MEAN CORPUSCULAR VOLUME 97.5 fL (80.0-94.0); MEAN PLATELET VOLUME 10.7 fl (7.4-10.4); MONOCYTES % 3.5 % (2.0-8.0); NEUTROPHILS % 92.7 % (40.0-76.0); RED BLOOD CELL COUNT 3.17 mill/uL (4.7-6.1); WHITE BLOOD COUNT 8.2 x1000/uL (4.5-11.0)
[2024-01-12 06:05] LABS: CHLORIDE 94 mEq/L (98-107); POTASSIUM 3.3 mEq/L (3.5-5.1); SODIUM 131 mEq/L (136-145)
[2024-01-12 06:06] LABS: CARBON DIOXIDE 24 mEq/L (21-32)
[2024-01-12 06:07] LABS: CALCIUM 8.4 mg/dL (8.7-10.4)
[2024-01-12 06:11] LABS: ALANINE AMINOTRANSFERASE 45 IU/L (10-49); GLUCOSE 106 mg/dL (70-105)
[2024-01-12 06:12] LABS: UREA NITROGEN BLOOD 47 mg/dL (9-23)
[2024-01-12 06:13] LABS: ALBUMIN 2.7 g/dL (3.2-4.8); ASPARTATE AMINOTRANSFERASE 68 IU/L (<34)
[2024-01-12 06:14] LABS: BILIRUBIN TOTAL 2.4 mg/dL (0.1-1.0); PROTEIN TOTAL 5.7 g/dL (6.0-8.3)
[2024-01-12 06:27] LABS: CREATININE 5.1 mg/dL (0.6-1.3)
[2024-01-12 06:38] LABS: DIFFERENTIAL COMMENT 1
[2024-01-12 06:39] LABS: PLATELET 28 x1000/uL (130-400)
[2024-01-12] MEDS: IPRATROPIUM/ALBUTEROL 0.5-3(2.5)MG/3ML NEB HHN SCH (08:01)
[2024-01-12] MEDS ORDERED: MORPHINE SULFATE 250 MG in DEXT 5% WATER 225 ML IV PRN (12:45)
[2024-01-12] MEDS: MEROPENEM 500MG/50ML 50 ML IV SCH (13:42)
[2024-01-12 17:07] LABS: INSULIN AUTOANTIBODIES < 5.0 uU/mL (.)
[2024-01-13] VITALS (9 sets, daily range): BP systolic 97–161; BP diastolic 44–109; PULSE 72–90; RESP 18–19; TEMP 36.05844–37.11408; O2SAT 96–99
[2024-01-13 13:11] LABS: AMPHETAMINE SCREEN Negative ng/mL (Cutoff:50); BARBITURATE SCREEN Negative ug/mL (Cutoff:0.1); BENZODIAZEPINE SCREEN Negative ng/mL (Cutoff:20); CANNABINOID SCREEN Negative ng/mL (Cutoff:5); OPIATES SCREEN Negative ng/mL (Cutoff:5); OXYCODONE SCREEN Negative ng/mL (Cutoff:5); PHENCYCLIDINE SCREEN Negative ng/mL (Cutoff:8)
[2024-01-14] VITALS (18 sets, daily range): BP systolic 79–148; BP diastolic 30–76; PULSE 70–94; RESP 16–19; TEMP 35.78064–36.61404; O2SAT 94–99
[2024-01-14] MEDS: LOSARTAN 100 MG TABLET PO SCH (09:09)
[2024-01-14 10:30] LABS: CALCIUM 8.7 mg/dL (8.7-10.4)
[2024-01-14 10:31] LABS: HEMATOCRIT. 29.4 % (42.0-52.0); HEMOGLOBIN. 9.5 g/dL (14.0-18.0); MEAN CORPUSCULAR HEMOGLOBIN 31.1 pg (28.0-32.0); MEAN CORPUSCULAR HGB CONC 32.4 g/dL (31.0-37.0); MEAN PLATELET VOLUME 10.8 fl (7.4-10.4); POTASSIUM 3.5 mEq/L (3.5-5.1); RED BLOOD CELL COUNT 3.06 mill/uL (4.7-6.1); RED CELL DISTRIBUTION WIDTH 18.9 % (11.6-14.6)
[2024-01-14 11:55] LABS: DIFFERENTIAL COMMENT 1
[2024-01-14 12:33] LABS: HEPATITIS B SURFACE ANTIGEN NEGATIVE (Negative)
[2024-01-14 12:54] LABS: HEPATITIS A AB IGM NEGATIVE (Negative); HEPATITIS B CORE AB IGM NEGATIVE (Negative)
[2024-01-14 12:55] LABS: HEPATITIS C AB NON REACTIVE (Neg) (Negative)
[2024-01-14 18:05] LABS: ANISOCYTOSIS 2+; NUCLEATED RED BLOOD CELLS 2 /100 WBC; PLATELET ESTIMATE MARKEDLY DECREASED
[2024-01-14 18:06] LABS: PLATELET 37 x1000/uL (130-400)
[2024-01-15] VITALS (9 sets, daily range): BP systolic 104–178; BP diastolic 28–112; PULSE 56–94; RESP 8–18; TEMP 35.89176–36.50292; O2SAT 92–100
[2024-01-15] MEDS ORDERED: NALOXONE HCL 0.4MG/ML VIAL IV PRN (16:45)
[2024-01-15] MEDS: HYDROCODONE/ACETAMINOPHEN 5/325MG TABLET PO PRN (17:19)
[2024-01-15] MEDS: GABAPENTIN 300MG CAPSULE PO SCH (21:35)
[2024-01-16] VITALS (9 sets, daily range): BP systolic 92–155; BP diastolic 39–105; PULSE 69–94; RESP 18–19; TEMP 35.66952–36.78072; O2SAT 97–100
[2024-01-17] VITALS (16 sets, daily range): BP systolic 116–176; BP diastolic 46–110; PULSE 59–100; RESP 15–22; TEMP 35.89176–37.00296; O2SAT 96–100
[2024-01-17 06:29] LABS: POTASSIUM 3.8 mEq/L (3.5-5.1)
[2024-01-17 06:30] LABS: CALCIUM 8.7 mg/dL (8.7-10.4)
[2024-01-17 07:12] LABS: CREATININE 5.6 mg/dL (0.6-1.3)
[2024-01-17 08:02] LABS: HEMATOCRIT. 25.8 % (42.0-52.0); HEMOGLOBIN. 8.3 g/dL (14.0-18.0); MEAN CORPUSCULAR HEMOGLOBIN 31.5 pg (28.0-32.0); MEAN CORPUSCULAR HGB CONC 32.3 g/dL (31.0-37.0); MEAN CORPUSCULAR VOLUME 97.4 fL (80.0-94.0); MEAN PLATELET VOLUME 9.5 fl (7.4-10.4); RED BLOOD CELL COUNT 2.65 mill/uL (4.7-6.1); RED CELL DISTRIBUTION WIDTH 18.3 % (11.6-14.6); WHITE BLOOD COUNT 5.3 x1000/uL (4.5-11.0)
[2024-01-17 08:07] LABS: DIFFERENTIAL COMMENT 1
[2024-01-17 08:16] LABS: PLATELET 33 x1000/uL (130-400)
[2024-01-17 17:37] LABS: ANISOCYTOSIS 1+; PLATELET ESTIMATE MARKEDLY DECREASED
== END 2024-01-17 17:50 | DRG 870 ==
LOC: ER 19:51 → 5WST 01-04 01:29 → 5EST 01-04 13:58 → CVICU 01-04 16:12 → 6EST 01-12 10:00 → 6WST 01-17 10:46
PROVIDERS: ADMIT Internal Medicine; ATTEND Internal Medicine
PROC: 5A1955Z Respiratory Ventilation, Greater than 96 Consecutive Hours (ICD-10-PCS; principal; 2024-01-04)
PROC: 0BH17EZ Insertion of Endotracheal Airway into Trachea, Via Natural or Artificial Opening (ICD-10-PCS; 2024-01-04)
PROC: 5A1D70Z Performance of Urinary Filtration, Intermittent, Less than 6 Hours Per Day (ICD-10-PCS; 2024-01-05)
PROC: 30233R1 Transfusion of Nonautologous Platelets into Peripheral Vein, Percutaneous Approach (ICD-10-PCS; 2024-01-05)
PROC: 0BH17EZ Insertion of Endotracheal Airway into Trachea, Via Natural or Artificial Opening (ICD-10-PCS; 2024-01-06)
PROC: 05H533Z Insertion of Infusion Device into Right Subclavian Vein, Percutaneous Approach (ICD-10-PCS; 2024-01-07)
PROC: B546ZZA Ultrasonography of Right Subclavian Vein, Guidance (ICD-10-PCS; 2024-01-07)
PROC: 5A1D70Z Performance of Urinary Filtration, Intermittent, Less than 6 Hours Per Day (ICD-10-PCS; 2024-01-07)
PROC: 30233N1 Transfusion of Nonautologous Red Blood Cells into Peripheral Vein, Percutaneous Approach (ICD-10-PCS; 2024-01-08)
PROC: 5A1D70Z Performance of Urinary Filtration, Intermittent, Less than 6 Hours Per Day (ICD-10-PCS; 2024-01-10)
PROC: 5A1D70Z Performance of Urinary Filtration, Intermittent, Less than 6 Hours Per Day (ICD-10-PCS; 2024-01-12)
PROC: 5A1D70Z Performance of Urinary Filtration, Intermittent, Less than 6 Hours Per Day (ICD-10-PCS; 2024-01-14)
PROC: 5A1D70Z Performance of Urinary Filtration, Intermittent, Less than 6 Hours Per Day (ICD-10-PCS; 2024-01-17)
DX: A41.59 Other Gram-negative sepsis (principal); I21.4 Non-ST elevation (NSTEMI) myocardial infarction; N18.6 End stage renal disease; R65.21 Severe sepsis with septic shock; J96.01 Acute respiratory failure with hypoxia; I50.23 Acute on chronic systolic (congestive) heart failure; K65.1 Peritoneal abscess; G92.8 Other toxic encephalopathy; J96.02 Acute respiratory failure with hypercapnia; J69.0 Pneumonitis due to inhalation of food and vomit; R57.9 Shock, unspecified; C79.51 Secondary malignant neoplasm of bone; E46 Unspecified protein-calorie malnutrition; I42.9 Cardiomyopathy, unspecified; E87.20 Acidosis, unspecified; I13.2 Hypertensive heart and chronic kidney disease with heart failure and with stage 5 chronic kidney disease, or end stage renal disease; M84.422A Pathological fracture, left humerus, initial encounter for fracture; I47.19 Other supraventricular tachycardia; K80.00 Calculus of gallbladder with acute cholecystitis without obstruction; E03.9 Hypothyroidism, unspecified; I73.9 Peripheral vascular disease, unspecified; Z85.528 Personal history of other malignant neoplasm of kidney; Z89.412 Acquired absence of left great toe; Z99.2 Dependence on renal dialysis; D69.6 Thrombocytopenia, unspecified; Z90.5 Acquired absence of kidney; D63.8 Anemia in other chronic diseases classified elsewhere; I49.1 Atrial premature depolarization; R26.81 Unsteadiness on feet; Z86.73 Personal history of transient ischemic attack (TIA), and cerebral infarction without residual deficits; E88.09 Other disorders of plasma-protein metabolism, not elsewhere classified; E16.2 Hypoglycemia, unspecified; D53.9 Nutritional anemia, unspecified; I08.1 Rheumatic disorders of both mitral and tricuspid valves; I25.10 Atherosclerotic heart disease of native coronary artery without angina pectoris; I27.20 Pulmonary hypertension, unspecified; I48.91 Unspecified atrial fibrillation; Z68.24 Body mass index [BMI] 24.0-24.9, adult; I25.2 Old myocardial infarction; I49.3 Ventricular premature depolarization; J44.9 Chronic obstructive pulmonary disease, unspecified; K52.9 Noninfective gastroenteritis and colitis, unspecified; Z66 Do not resuscitate; Z79.02 Long term (current) use of antithrombotics/antiplatelets; Z79.899 Other long term (current) drug therapy; Z88.0 Allergy status to penicillin; Z88.5 Allergy status to narcotic agent; Z95.5 Presence of coronary angioplasty implant and graft; Z99.3 Dependence on wheelchair
CPT/HCPCS: 31500; 36415; 36600; 71045; 73060; 74176; 76604; 76705; 76937; 78227; 80048; 80051; 80053; 80076; 80202; 80307; 82105; 82140; 82375; 82378; 82533; 82607; 82728; 82746; 82805; 82947; 82962; 83036; 83519; 83525; 83540; 83550; 83605; 83735; 83880; 84100; 84145; 84206; 84305; 84439; 84443; 84478; 84484; 84681; 85014; 85018; 85025; 85027; 85044; 85379; 85384; 86301; 86304; 86337; 86376; 86705; 86709; 86850; 86900; 86920; 87070; 87077; 87186; 87340; 90935; 92610; 93005; 93306; 93970; 94003; 94640; 95816; 99291; A9537; J0885; J1720; J2185; J2270; J2405; J2470; J2543; J2704; J3370; J3475; J3490; J7060; P9016; P9034